=== PATIENT | male | born 1985 | race Caucasian/White ===

== ENCOUNTER → 2018-02-01 | Outpatient (CLI) | payer OTHER, MEDICAID ==
[~2018-02-01] MED LIST: ARIPIPRAZOLE10 MG PO; FLONASE 0.05%50 MCG NASAL; HYDROCODONE-AP1 EAC6 PO; LOPRESSOR50 PO; NEURONTIN 300300 M1 PO; SEROQUEL 50 MG50 MG PO
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
== END ==
LOC: M.PC 01:35
DX: M54.5 Low back pain (principal); G89.29 Other chronic pain

== ENCOUNTER → 2018-03-01 | Outpatient (CLI) | payer OTHER, MEDICAID ==
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
== END ==
LOC: M.PC 02:18
DX: E11.9 Type 2 diabetes mellitus without complications (principal); I10 Essential (primary) hypertension; F40.00 Agoraphobia, unspecified; K21.9 Gastro-esophageal reflux disease without esophagitis; F25.0 Schizoaffective disorder, bipolar type; F17.200 Nicotine dependence, unspecified, uncomplicated

== ENCOUNTER → 2018-03-27 | Outpatient (CLI) | payer OTHER, MEDICAID ==
--- NOTE | 2018-03-29 08:42 | PAINCON ---
[address] [address] PAIN MANAGEMENT CONSULTATION Name: FREDY HENNESSY [facility]: [facility] ClareKelly#: [id number] Admission: 03/27/18 Attend Phys: Viktor Dean MD Discharge: Date of : 89 Report #: [id number] THIS REPORT FOR: //name// CC: Viktor Mi NP DATE OF SERVICE: 03/27/2018 PRIMARY CARE PHYSICIAN: Diandra Mi NP FOLLOWUP COMPLAINT: Here for medications. Things are very helpful. FOLLOWUP HISTORY: The patient is a 33-year-old gentleman who has been seen in the pain clinic because of chronic pain secondary to osteoarthritis. He has been using hydrocodone 5/325 1 p.o. b.i.d. He also finds that the gabapentin 300 mg is helpful. Continues to have some pain and discomfort in his buttocks. He is experiencing some low back pain. As you recall, this pain has been problematic for a number of years. He feels overall that things are going relatively well. He is able to manage his pain level with the use of these medications. Rates his pain as a 5/10. No problem with bowel or bladder dysfunction. No problems with his sensorium, which is clear. He would like to continue with the medications. He feels that these medications continue to help him stay gainfully employed. ALLERGIES: ASPIRIN AND REQUIP CAUSE TACHYCARDIA. CURRENT MEDICATIONS: Aripiprazole 10 mg, gabapentin 300 mg b.i.d., metoprolol ER 50 mg, quetiapine 50 mg, lamotrigine. PAIN CLINIC ASSESSMENT: 1. History of osteoarthritis with compression fracture L1. 2. Height 4 feet 10 inches, weight 141 pounds, BMI is 29.5. 3. Vital signs - blood pressure 164/96, heart rate 108, respiratory rate 16, room air saturation 98%, temperature 98.8. 4. Pain intensity 02/01. 6. Fall risk. The patient has not fallen in the last 3 months. 7. Blood thinner. The patient is not on a blood thinning medication. 8. Hypertension. The patient is being treated for hypertension. 9. Opioid medication greater than 6 weeks. The patient is receiving opioid medications with the pain clinic. 10. Risk assessment tool. 11. Functional assessment tool. 12. Recreational drug use. The patient denies use of recreational drugs use. 13. Tobacco: The patient smokes 1-1/2 pack of cigarettes per day. 14. Alcohol: The patient denies use of alcoholic beverages[place] [address] PAIN MANAGEMENT CONSULTATION Name: FREDY HENNESSY Room: [facility]#: [id number] Admission: 03/27/18 Attend Phys: Viktor Dean MD Discharge: Date of : 89 Report #: [id number] an alcoholic. PHYSICAL EXAMINATION: GENERAL: The patient is a well-developed, somewhat short-statured white male. He is appropriate. Speech is fluent. HEENT: Normocephalic, atraumatic. Extraocular eye muscles intact. Sclerae nonicteric. Hearing is within normal limits. Mucous membranes are moist. NECK: Without adenopathy or JVD. CHEST: Clear to auscultation without rhonchi or wheezes. HEART: Regular rate. S1, S2. ABDOMEN: Nontender. MUSCULOSKELETAL: Without scoliosis, kyphosis or lordosis. The patient has some pain and discomfort in his left buttocks and radiates down the posterior portion of his leg. He feels that the pain as some pins and needles in the posterior feet. Upper extremity muscle strength is judged to be 5/5. Lower extremity strength 5/5. The patient has some decreased flexibility secondary to his pain. IMPRESSION: 1. Agoraphobia. 2. Bipolar. 3. Schizoaffective disorder. 4. Gastroesophageal reflux disease. 5. Diabetes mellitus. 6. Hypertension. 7. Nicotine use. The patient continues one-half to a pack of cigarettes per day. RECOMMENDATIONS: We discussed treatment options with the patient. Risks and benefits of his medications were again reviewed. The patient feels that these medications are helpful. He is aware of the possible problems with addiction using opioid medications. Feels that their use help to quell some of the pain and discomfort, makes his pain manageable. The patient will continue with his medication. He will call us if he has any problems with his medications. A script for renewal of his medications have been provided with hydrocodone 5/325 1 p.o. b.i.d. We would like to thank you for letting us participate in his care. We hope he continues to improve. <ELECTRONICALLY SIGNED> By: Viktor Dean MD 03/29/18 0842 1623 [id number]. Jesus Dean MD /[facility]
== END ==
LOC: M.PC 05:31
DX: M47.816 Spondylosis without myelopathy or radiculopathy, lumbar region (principal); I10 Essential (primary) hypertension; E11.9 Type 2 diabetes mellitus without complications; K21.9 Gastro-esophageal reflux disease without esophagitis; F40.00 Agoraphobia, unspecified; F31.9 Bipolar disorder, unspecified; F25.9 Schizoaffective disorder, unspecified; F17.210 Nicotine dependence, cigarettes, uncomplicated

== ENCOUNTER → 2018-04-24 | Outpatient (CLI) | payer OTHER, MEDICAID ==
--- NOTE | 2018-04-25 14:16 | PAINCON ---
[address] [address] PAIN MANAGEMENT CONSULTATION Name: FREDY HENNESSY Room: [facility]#: [id number] Admission: 04/24/18 Attend Phys: Vitkor Dean MD Discharge: Date of : 89 Report #: [id number] THIS REPORT FOR: //name// CC: Viktor Mi DATE OF SERVICE: 04/24/2018 PRIMARY CARE PHYSICIAN: Diandra Mi NP FOLLOWUP COMPLAINT: "Things are going pretty good. I am enjoying been out of the house." FOLLOWUP HISTORY: The patient is a 33-year-old gentleman who has been followed in the Pain Clinic. As you recall, he has chronic pain secondary to osteoarthritis. He has been working. Finds that his medications continue to enable him to work out of house. He is happy that he is more active. He does not have any problem with his medications. He is taking them as prescribed. No bowel or bladder dysfunction. No problems with his sensorium. It is clear. He feels that his medications are working well and would like to continue their use. ALLERGIES: ASPIRIN AND REQUIP, which have caused tachycardia. CURRENT MEDICATIONS: Aripiprazole 10 mg, gabapentin 300 mg b.i.d., metoprolol ER 50 mg, quetiapine 50 mg, and lamotrigine. PAIN CLINIC ASSESSMENT: 1. History of osteoarthritis with compression fracture at L1. 2. Height 4 feet 10 inches, weight 137 pounds, BMI is 28. 3. Vital Signs: Blood pressure 146/98, heart rate 98, respiratory rate 16, room air saturation 100%, temperature 98.4. 4. Pain score 4/10. 5. Fall risk. The patient has not fallen in the last 3 months. 6. Blood thinner. The patient is not on a blood thinning medication. 7. Hypertension. The patient is being treated for hypertension. 8. Opioid medications greater than 6 weeks. The patient has received medication from the Pain Clinic to help control his pain. 9. Risk assessment tool. 10. Functional assessment tool. 11. Recreational drug use. The patient denies use of recreational drugs. 12. Tobacco: The patient smokes 1-1/2 pack of cigarettes per day. 13. Alcohol: The patient denies use of alcoholic beverages. PHYSICAL EXAMINATION: GENERAL: The patient is a well-developed, well-nourished [place] [address] PAIN MANAGEMENT CONSULTATION Name: FREDY HENNESSY Room: [facility]#: [id number] Admission: 04/24/18 Attend Phys: Viktor Dean MD Discharge: Date of : 89 Report #: [id number] short in stature. His affect is appropriate. He is smiling. Speech is fluent. He appears happy. HEENT: Normocephalic, atraumatic. Extraocular eye muscles intact. Sclerae nonicteric. Hearing is within normal limits. Mucous membranes are moist. NECK: Without adenopathy or JVD. CHEST: Clear to auscultation without rhonchi or wheezing. HEART: Regular rate. S1, S2. ABDOMEN: Nontender. MUSCULOSKELETAL: Without scoliosis, kyphosis or lordosis. The patient has some pain and discomfort, which continues to radiate down into his left buttocks and to the posterior portion of his leg. Feels the pain has some pins and needle quality to it. Muscle strength is judged to be 5/5. Has some decreased flexibility in the low back because of the pain. IMPRESSION: 1. Agoraphobia. 2. Chronic pain in the low back, buttocks area. 3. Bipolar. 4. Schizoaffective disorder. 5. Gastroesophageal reflux disease. 6. Diabetes mellitus. 7. Hypertension. 8. Nicotine use. RECOMMENDATIONS: We discussed treatment options with the patient. We will continue with his current medications. He still feels that the medications are helpful. He is able to stay gainfully employed. He feels that this increased freedom has opened up his options. We will continue with his current medications of hydrocodone 5/325 one p.o. b.i.d. and gabapentin 300 mg daily. We would like to thank you for letting us participate in his care. We hope he continues to improve. <ELECTRONICALLY SIGNED> By: Viktor Dean MD 04/25/18 1416 1311 [id number]. Jesus Dean MD /[facility]
== END ==
LOC: M.PC 05:16
DX: M54.5 Low back pain (principal); G89.29 Other chronic pain; I10 Essential (primary) hypertension; E11.9 Type 2 diabetes mellitus without complications; K21.9 Gastro-esophageal reflux disease without esophagitis; F40.00 Agoraphobia, unspecified; F25.9 Schizoaffective disorder, unspecified; F17.200 Nicotine dependence, unspecified, uncomplicated; Z79.899 Other long term (current) drug therapy

== ENCOUNTER → 2018-05-22 | Outpatient (CLI) | payer OTHER, MEDICAID ==
--- NOTE | 2018-05-23 16:42 | PAINCON ---
[address] [address] PAIN MANAGEMENT CONSULTATION Name: FREDY HENNESSY Room: [facility]#: [id number] Admission: 05/22/18 Attend Phys: Viktor Dean MD Discharge: Date of : 89 Report #: [id number] THIS REPORT FOR: //name// CC: Viktor Mi DATE OF SERVICE: 05/22/2018 PRIMARY CARE PHYSICIAN: Diandra Mi NP FOLLOWUP COMPLAINT: "Things are going well. I am working. It is good to be outside more." FOLLOWUP HISTORY: The patient is a 33-year-old gentleman who has been followed in the Pain Clinic. As you recall, he has a history of agoraphobia. He finds that pain control with use of his opioid medication has been quite helpful. He is able to remain gainfully employed. Feels that working outside of his house is good. Feels his medications are helpful. He is taking them as prescribed. He does not have any problem with bowel or bladder dysfunction. He has had no feelings of despair where he would like to harm himself. ALLERGIES: ASPIRIN and REQUIP, which have caused tachycardia using REQUIP. CURRENT MEDICATIONS: Aripiprazole 10 mg, gabapentin 300 mg b.i.d., metoprolol ER 50 mg, quetiapine 50 mg, lamotrigine. PAIN CLINIC ASSESSMENT: 1. History of osteoarthritis with compression fracture of L1. 2. Height 4 feet 10 inches, weight 136 pounds, BMI is 28.5. 3. Vital Signs: Blood pressure 156/100, heart rate 104, respiratory rate 16, room air saturation 98%, and temperature 98.2. 4. Pain score 4/10. 5. Fall risk. The patient has not fallen in the last 3 months. 6. Blood thinner. The patient is not on a blood thinning medication. 7. Hypertension. The patient is being treated for hypertension. 8. Opioid medication greater than 6 weeks. The patient receives his medication through the Pain Clinic. 9. Risk assessment tool. 10. Functional assessment tool. 11. Recreational drug use. The patient denies use of recreational drugs. 12. Tobacco: The patient smokes one to one and half pack of cigarettes per day. 13. Alcohol: The patient denies use of alcoholic beverages. PHYSICAL EXAMINATION: GENERAL: The patient is a well-developed, well-nourished [place] [address] PAIN MANAGEMENT CONSULTATION Name: FREDY HENNESSY Room: [facility]#: [id number] Admission: 05/22/18 Attend Phys: Viktor Dean MD Discharge: Date of : 89 Report #: [id number] small in stature. His affect is appropriate. He is smiling. Speech is fluent. Appears happy. HEENT: Normocephalic, atraumatic. Extraocular eye muscles intact. Sclerae nonicteric. Hearing is within normal limits. Mucous membranes are moist. NECK: Without adenopathy or JVD. CHEST: Clear to auscultation without rhonchi or rales. HEART: Regular rate. S1, S2. ABDOMEN: Nontender. MUSCULOSKELETAL: Without scoliosis, kyphosis or lordosis. The patient has some pain and discomfort, which continues to radiate down into his left buttocks and to the posterior portion of his leg. Feels that the pain has some components of pins and needle quality to it. Strength is judged to be 5/5. Has decreased flexibility in the low back because of pain. IMPRESSION: 1. Agoraphobia. 2. Chronic pain in the low back area, buttocks area. 3. Bipolar. 4. Schizoaffective disorder. 5. Gastroesophageal reflux disease. 6. Diabetes mellitus. 7. Hypertension. 8. Nicotine use. RECOMMENDATION: The patient feels that he is doing reasonably well. His medications continue to be helpful. He remains gainfully employed outside of his home. Overall, he feels that things are going reasonably well and would like to continue his current medication regimen. A script for hydrocodone 5/325 one p.o. b.i.d. and gabapentin have been rewritten. The patient will call us if he has any problems or concerns. We would like to thank you for letting us participate in his care. We hope he continues to improve. <ELECTRONICALLY SIGNED> By: Viktor Dean MD 05/23/18 1642 [id number] [id number] Dean MD /MADHAVI
== END ==
LOC: M.PC 04:26
DX: M54.5 Low back pain (principal); G89.29 Other chronic pain; F31.9 Bipolar disorder, unspecified; F25.0 Schizoaffective disorder, bipolar type; K21.9 Gastro-esophageal reflux disease without esophagitis; E11.9 Type 2 diabetes mellitus without complications; I10 Essential (primary) hypertension; F17.200 Nicotine dependence, unspecified, uncomplicated

== ENCOUNTER → 2018-06-19 | Outpatient (CLI) | payer OTHER, MEDICAID ==
--- NOTE | 2018-07-09 10:00 | PAINCON ---
[address] [address] PAIN MANAGEMENT CONSULTATION Name: FREDY HENNESSY Room: [facility] KathyOrin#: [id number] Admission: 06/19/18 Attend Phys: Viktor Dean MD Discharge: Date of : 89 Report #: [id number] THIS REPORT FOR: //name// CC: Viktor Mi NP DATE OF SERVICE: 06/19/2018 FOLLOWUP COMPLAINT: Here for medication renewal, things are going well. FOLLOWUP HISTORY: The patient is a 33-year-old gentleman who has been followed in the pain clinic. As you recall, he has a history of agoraphobia. Also, has some low back pain with pain radiating down into the buttocks and into the sacral area. He feels that his medications of hydrocodone continue to be helpful. He is able to remain gainfully employed. Feels that getting out is good. He has not had any thoughts of harming himself. He is working out 3 days a week in the office. He is out of the office 2 days a week. His primary care physician continues to change his blood pressure medications. They continue to monitor. He is using metoprolol. Feels that the hydrocodone is working well. Rates his pain as a 3/10. Continues to use gabapentin and finds that medications helpful as well. ALLERGIES: ASPIRIN, REQUIP, TACHYCARDIA SECONDARY USE OF REQUIP. CURRENT MEDICATIONS: 1. Aripiprazole 10 mg. 2. Gabapentin 300 mg b.i.d. 3. Metoprolol ER 50 mg. 4. Quetiapine 50 mg. 5. Lamotrigine. PAIN CLINIC ASSESSMENT: 1. History of osteoarthritis. The patient is not being treated for osteoarthritis. 2. Height 4 feet 10 inches, weight 135 pounds, BMI is 28.5. 3. Vital signs: Blood pressure 157/98, heart rate 103, respiratory rate 16, room air saturation 98%, temperature 98.7. 4. Pain intensity 12/02. 5. Fall risk. The patient has not fallen in the last 3 months. 6. Blood thinner. The patient is not on a blood thinning medication. 7. Hypertension. The patient has been treated for hypertension. 8. Opioid therapy greater than 6 weeks. The [facility] 9. Risk assessment tool. 10. Functional [place] [address] PAIN MANAGEMENT CONSULTATION Name: FREDY HENNESSY Room: [facility]#: [id number] Admission: 06/19/18 Attend Phys: Viktor Dean MD Discharge: Date of : 89 Report #: [id number] 11. Recreational drug use. The patient denies use of recreational drugs. 12. Tobacco: The patient smokes one half to one pack of cigarettes per day, has smoked for the last 15 years. 13. Alcohol: The patient denies use of alcohol. The patient denies use of recreational drugs. PHYSICAL EXAMINATION: GENERAL: The patient is a well-developed, well-nourished white male. He appears his stated age. He is short in stature. His affect is appropriate. Speech is fluent. Appears happy. HEENT: Normocephalic, atraumatic. Extraocular eye muscles intact. Sclerae nonicteric. Hearing is within normal limits. Mucous membranes are moist. NECK: Without adenopathy or JVD. CHEST: Clear to auscultation without rhonchi or rales. HEART: Regular rate. S1, S2. ABDOMEN: Nontender. MUSCULOSKELETAL: Without scoliosis, kyphosis or lordosis. The patient has some pain and discomfort that radiates down the left of his buttocks. Notes some in the posterior portion of his leg as well. The patient notes some quality of pins and needle sensation in his leg. Strength is judged to be 5/5 for the major muscle groups. The patient walks with a slight antalgic gait. ASSESSMENT: 1. Agoraphobia. 2. Chronic pain in low back area involving his buttocks area with some in the area of sacrum. 3. Bipolar history. 4. Schizoaffective disorder. 5. Gastroesophageal reflux disease. 6. Diabetes mellitus. 7. Hypertension. 8. Nicotine use. RECOMMENDATIONS: We discussed treatment options with the patient. Risks and benefits of opioid medication were again discussed with the patient. They can be helpful. Problems with opioid medication were discussed. They could cause dependency as well as less effective as tolerance develops. Overall, the patient feels that the medication is helpful. Enables him to continue to work. He would like to continue with the medication. He is not having any problems. He continued followup with his psychologist. <ELECTRONICALLY SIGNED> By: Viktor Dean MD 07/09/18 1000 [id number]. Jesus Dean MD /nt
== END ==
LOC: M.PC 04:55
DX: F40.00 Agoraphobia, unspecified (principal); I10 Essential (primary) hypertension; E11.9 Type 2 diabetes mellitus without complications; K21.9 Gastro-esophageal reflux disease without esophagitis; F25.9 Schizoaffective disorder, unspecified; M54.5 Low back pain; Z72.0 Tobacco use; Z86.59 Personal history of other mental and behavioral disorders; Z79.899 Other long term (current) drug therapy

== ENCOUNTER → 2018-07-17 | Outpatient (CLI) | payer OTHER, MEDICAID ==
--- NOTE | 2018-08-08 16:08 | PAINCON ---
[address] [address] PAIN MANAGEMENT CONSULTATION Name: FREDY HENNESSY [id number] Admission: 07/17/18 Attend Phys: Viktor Dean MD Discharge: Date of : 89 Report #: [id number] THIS REPORT FOR: //name// CC: Viktor Mi DATE OF SERVICE: 07/17/2018 CHIEF COMPLAINT: "Things are going reasonably well." FOLLOWUP HISTORY: The patient is a 33-year-old gentleman who has been followed in the pain clinic because of chronic pain. Suffers from agoraphobia. He continues to have some pain and discomfort, which radiates down into his buttocks and into the sacral area. Overall, he thinks things are going reasonably well with his hydrocodone medication. This enables him to stay gainfully employed. He has no thoughts of harming himself. He did have some problems with getting his blood pressure medications. The pharmacy told him that he had already received it. He had not. This caused some consternation. Overall, they have called him again and told him that things are ready. He feels that his blood pressure is a little bit elevated because of this. He has been out of medication for 6 days. He continues to find being out in more social very liberating. ALLERGIES: ASPIRIN, REQUIP - TACHYCARDIA. CURRENT MEDICATIONS: Aripiprazole 10 mg, gabapentin 300 mg b.i.d., metoprolol 50 mg, quetiapine 50 mg, and lamotrigine. PAIN CLINIC ASSESSMENT: 1. History of osteoarthritis. The patient has not been treated for osteoarthritis or rheumatoid arthritis. 2. Height 4 feet 10 inches. 3. Weight 132 pounds, BMI is 26.9. 4. VITAL SIGNS: Blood pressure 158/103, heart rate 105, respiratory rate 16, room air saturation 99%, and temperature 98.4. 5. Pain intensity 10. 6. Fall history: The patient has not fallen in the last 3 months. 7. Blood thinner. The patient is not on a blood thinning medication. 8. Hypertension. The patient is being treated for hypertension. 9. Opioids greater than 6 weeks. The patient [facility]. 10. Risk assessment tool. 11. Functional assessment tool. 12. Recreational drug use: The patient denies. 13. Tobacco: The patient smokes 1/2 pack of cigarettes per day and has smoked for the last [place] [address] PAIN MANAGEMENT CONSULTATION Name: FREDY HENNESSY Room: [facility]#: [id number] Admission: 07/17/18 Attend Phys: Viktor Dean MD Discharge: Date of : 89 Report #: [id number] 13. Alcohol: The patient denies use of alcoholic beverages. PHYSICAL EXAMINATION: GENERAL: The patient is a well-developed, well-nourished white male. He is short in stature. Affect is appropriate. Speech is fluent. HEENT: Normocephalic, atraumatic. Extraocular eye muscles intact. Sclerae nonicteric. Hearing is within normal limits. Mucous membranes are moist. NECK: Without adenopathy or JVD. CHEST: Clear to auscultation without rhonchi or rales. HEART: Regular rate. S1, S2. ABDOMEN: Nontender. Bowel sounds present. MUSCULOSKELETAL: Without scoliosis, kyphosis or lordosis. The patient has pain and discomfort radiates down into the left side of his buttocks. He has some posterior pain in his leg as well. The patient has some perception of pins and needles in the leg. Strength in lower extremity judged to be 5/5. The patient is not walking with much of an antalgic gait today. ASSESSMENT: 1. Agoraphobia. 2. Pain in the low back area involving his buttocks with some pain into the sacrum. 3. Bipolar history. 4. Schizoaffective disorder. 5. Gastroesophageal reflux disease. 6. Diabetes. 7. Hypertension. 8. Nicotine use. Discussed the benefits of cessation of tobacco use. RECOMMENDATIONS: We discussed treatment options with the patient. At this juncture, we will continue with his medication. He feels that this medication is helpful. Not having any problem with the medications. Also discussed the importance of taking the medication as prescribed. Discussed development of tolerance. The patient is aware that opioid medications in conjunction with other medications can be problematic and cause . He has seen reports of these items in the news. Overall, he feels his medications helpful and would like to continue with the medication, not having any problems. We would like to thank you for letting us participate in his care. We hope he continues to improve. <ELECTRONICALLY SIGNED> By: Viktor Dean MD 08/08/18 1608 [id number]. Jesus Dean MD /nt
== END ==
LOC: M.PC 04:57
DX: F40.00 Agoraphobia, unspecified (principal); M54.5 Low back pain; F31.9 Bipolar disorder, unspecified; F25.9 Schizoaffective disorder, unspecified; E11.9 Type 2 diabetes mellitus without complications; K21.9 Gastro-esophageal reflux disease without esophagitis; I10 Essential (primary) hypertension; F17.210 Nicotine dependence, cigarettes, uncomplicated

== ENCOUNTER → 2018-08-14 | Outpatient (CLI) | payer OTHER, MEDICAID ==
--- NOTE | ~2018-08-14 | PAINCON ---
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 As you recall, he suffers from chronic pain. He has a history of agoraphobia. He continues to have pain that radiates down into his buttocks and into the sacral area. Overall, he thinks that things are going reasonably well. He finds that hydrocodone about 1 tablet p.o. b.i.d. is helpful. He has remained gainfully employed. He is feeling good about himself. No thoughts of harming himself. He does have pain in the low back and pain that radiates down into his buttocks. He is contemplating cooking a turkey this year, this is his first attempt. Overall, he is feeling pretty good about it. He would like to have his medications renewed. He has had no problems with his medications. He rates his pain as a 4/10. ALLERGIES: ASPIRIN AND REQUIP -- TACHYCARDIA. CURRENT MEDICATIONS: Aripiprazole 10 mg, gabapentin 300 mg b.i.d., metoprolol 50 mg, quetiapine 50 mg, and lamotrigine. CLINIC ASSESSMENT AND PQRS: 1. History of osteoarthritis: The patient is not being treated for osteoarthritis or rheumatoid arthritis. 2. Height 4 feet 10 inches, weight 134, BMI is 28. 3. Vital signs: Blood pressure 169/95, heart rate 97, respiratory rate 18, room air saturation 99%, temperature 98.2. 4. Pain intensity: 4/10. 5. Fall history: The patient has not fallen in the last 3 months. 6. Blood thinner: The patient is not on a blood thinning medication. 7. Hypertension: The patient is being treated for hypertension. 8. Opioids greater than 6 weeks: The [facility]. 9. Risk assessment tool. 10. Functional assessment tool. 11. Recreational drug use: The patient denies use of recreational drugs. 12. Tobacco: The patient smokes one-half pack of cigarettes per day and has smoked for the last 15 years. He states that [place] [address] PAIN MANAGEMENT CONSULTATION Name: ALONDRAANABELFREDY FRANKLIN Rich Room: [facility]#: [id number] Admission: 08/14/18 Attend Phys: Viktor Dean MD Discharge: Date of : 89 Report #: [id number] amount. We did discuss the benefits of smoking cessation with the patient. 13. Alcohol: The patient denies use of alcoholic beverages. PHYSICAL EXAMINATION: GENERAL: The patient is a well-developed, well-nourished, white male. He appears his stated age. He is alert and oriented x 3. His affect is appropriate. Speech is fluent. HEENT: Normocephalic, atraumatic. Extraocular eye muscles intact. Sclerae nonicteric. Mucous membranes are moist. NECK: Without adenopathy or JVD. CHEST: Clear to auscultation without rhonchi or rales. HEART: Regular rate. S1 and S2. ABDOMEN: Nontender. Bowel sounds present. MUSCULOSKELETAL: Without scoliosis, kyphosis or lordosis. The patient has some pain and discomfort that radiates down into the left side of his buttocks. He has some pain in the posterior portion of his leg as well. He has some perception of pins and needles in his leg. Muscle strength is judged to be 5/5. The patient walks normally without significant antalgic gait. ASSESSMENT: 1. Agoraphobia. 2. Pain in the low back area involving the buttocks and some pain down into his sacrum. 3. Bipolar history. 4. Schizoaffective disorder. 5. Gastroesophageal reflux disease. 6. Diabetes. 7. Hypertension. 8. Nicotine use. Discussed benefits of smoking cessation. RECOMMENDATIONS: We discussed treatment options with the patient. We will continue with his current medications. 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 He seems very motivated. He continues to work well. He appears to be taking his medications as prescribed. We will renew his medication of hydrocodone 5 mg 1 p.o. b.i.d. We would like to thank you for letting us participate in his care. We hope he continues to improve. By: [id number]. Jesus Dean MD /cherie
== END ==
LOC: M.PC 04:52
DX: F40.00 Agoraphobia, unspecified (principal); M54.5 Low back pain; F25.9 Schizoaffective disorder, unspecified; K21.9 Gastro-esophageal reflux disease without esophagitis; E11.9 Type 2 diabetes mellitus without complications; I10 Essential (primary) hypertension; F17.200 Nicotine dependence, unspecified, uncomplicated; Z86.59 Personal history of other mental and behavioral disorders

== ENCOUNTER → 2018-09-11 | Outpatient (CLI) | payer OTHER, MEDICAID ==
--- NOTE | ~2018-09-11 | PAINCON ---
[address] [address] PAIN MANAGEMENT CONSULTATION Name: FREDY HENNESSY Room: [facility] John#: [id number] Admission: 09/11/18 Attend Phys: Viktor Dean MD Discharge: Date of : 89 Report #: [id number] THIS REPORT FOR: //name// CC: Viktor Pompatings DATE OF SERVICE: 09/11/2018 FOLLOWUP COMPLAINT: "Things are going well, I am here for getting my medications renewed." FOLLOWUP HISTORY: The patient is a 33-year-old gentleman who has been followed in the pain clinic. As you recall, he suffers from chronic pain. He has a history of agoraphobia. Continues to have pain, which radiates down into his buttocks and into the sacral area. Overall, things are going reasonably well. He finds hydrocodone medication helps to quell his pain and discomfort. He continues to be gainfully employed. Feels good about being out and about. Overall, things are going relatively well with him. It is Leona season and he is happy with the way things are going. He would like to have his medications renewed. ALLERGIES: ASPIRIN, REQUIP - TACHYCARDIA. CURRENT MEDICATIONS: Aripiprazole 10 mg, gabapentin 300 mg b.i.d., metoprolol 50 mg, quetiapine 50 mg, and lamotrigine. PAIN CLINIC ASSESSMENT AND PQRS: 1. History of osteoarthritis. The patient is not being treated for osteoarthritis or rheumatoid arthritis. 2. Height 4 feet 5 inches, weight 133 pounds, BMI is 29.2. 3. Vital signs: Blood pressure 151/94, heart rate 105, respiratory rate 16, room air saturation 99%. Temperature 98.3. 4. Pain intensity, 5/10. 5. Fall history: The patient has not fallen in the last 3 months. 6. Blood thinner. The patient is not on a blood thinning medication. 7. Hypertension. The patient is not being treated for hypertension. 8. Opioids greater than 6 weeks. The patient [facility] medication [facility]. 9. Risk assessment tool, moderate for use of opioids. 10. Functional assessment tool. 11. Recreational drug use. The patient denies use of recreational drugs. 12. Tobacco: The patient smokes ____ pack of cigarettes per day, has smoked for the last 15 years. Again, we discussed the benefits of smoking cessation. 13. Alcohol: The patient denies use of alcoholic beverages. PHYSICAL EXAMINATION: [address] [place] [address] PAIN MANAGEMENT CONSULTATION Name: FREDY HENNESSY Room: [facility]#: [id number] Admission: 09/11/18 Attend Phys: Viktor Dean MD Discharge: Date of : 89 Report #: [id number] GENERAL: The patient is a well-developed, well-nourished white male. Short in stature. Speech is fluent. HEENT: Normocephalic, atraumatic. Extraocular eye muscles intact. Sclerae nonicteric. Mucous membranes are moist. CHEST: Clear to auscultation without rhonchi or rales. HEART: Regular rate. S1, S2. ABDOMEN: Nontender. Bowel sounds present. MUSCULOSKELETAL: Without scoliosis, kyphosis, or lordosis. The patient has some pain and discomfort that radiates down the left side of the leg and into the buttocks. He has some pain in the posterior portion of his leg. He has some ____ pins and needles on occasion. Muscle strength judged to be 5/5. The patient walks with a normal gait. ASSESSMENT: 1. History of agoraphobia - improved with him getting out and working at this juncture. 2. Pain in the lower area of his back and down to the buttocks and into the sacrum. 3. History of bipolar history. 4. Schizoaffective disorder. 5. Gastroesophageal reflux disease. 6. Diabetes. 7. Hypertension. 8. Nicotine use. RECOMMENDATIONS: We discussed treatment options with the patient. Risks and benefits of smoking cessation were discussed. The patient feels his medications are helpful. He would like to have the medications renewed. A script for gabapentin 300 mg 1 p.o. b.i.d. and a renewal of [place] 5/325 one p.o. b.i.d. have been issued. The patient will call us if he has any concerns. We would like to thank you for letting us participate in his care. We hope he continues to improve. By: [id number]. Jesus Dean MD /cherie
== END ==
LOC: M.PC 04:42
DX: M54.5 Low back pain (principal); M53.3 Sacrococcygeal disorders, not elsewhere classified; I10 Essential (primary) hypertension; E11.9 Type 2 diabetes mellitus without complications; K21.9 Gastro-esophageal reflux disease without esophagitis; F25.0 Schizoaffective disorder, bipolar type; F17.200 Nicotine dependence, unspecified, uncomplicated; Z79.899 Other long term (current) drug therapy

== ENCOUNTER → 2018-10-09 | Outpatient (CLI) | payer OTHER, MEDICAID ==
[~2018-10-09] MED LIST changes: +CHANTIX1 MG PO
== END ==
LOC: M.PC 09:40
DX: F40.01 Agoraphobia with panic disorder (principal); M54.5 Low back pain; K21.9 Gastro-esophageal reflux disease without esophagitis; I10 Essential (primary) hypertension; F17.200 Nicotine dependence, unspecified, uncomplicated; E11.9 Type 2 diabetes mellitus without complications; F25.9 Schizoaffective disorder, unspecified; Z86.59 Personal history of other mental and behavioral disorders

== ENCOUNTER → 2018-11-13 | Outpatient (CLI) | payer OTHER, MEDICAID ==
[~2018-11-13] MED LIST changes: +LOPRESSOR100 M1 PO; -LOPRESSOR50 PO
--- NOTE | 2018-11-21 09:41 | PAINCON ---
[address] [address] PAIN MANAGEMENT CONSULTATION Name: FREDY HENNESSY Room: [facility]#: [id number] Admission: 11/13/18 Attend Phys: Viktor Dean MD Discharge: Date of : 89 Report #: [id number] THIS REPORT FOR: //name// CC: Viktor Mi NP DATE OF SERVICE: 11/13/2018 PRIMARY CARE PHYSICIAN: Diandra Mi NP FOLLOWUP COMPLAINT: Here for medication renewal, things are going well. FOLLOW HISTORY: The patient is a 33-year-old gentleman who has been followed in the pain clinic because of chronic pain. He has some pain and discomfort in his low back and his buttocks. This has been problematic for a number of years. He finds that his medications are helpful. He continues to work outside the home. As you may recall, he suffers from agoraphobia. States that he continues to work and finds his job for feeling somewhat. Notes that the cold weather has exacerbated his discomfort. He was out of his medication for 5 days due to a billing issue. He feels that his pain continues to be more tolerable with use of [place]. He had no problems with withdrawal, rates his pain as a 7/10. ALLERGIES: ASPIRIN, REQUIP CAUSE TACHYCARDIA. CURRENT MEDICATIONS: Aripiprazole 10 mg, gabapentin 300 mg b.i.d., metoprolol 50 mg, quetiapine 50 mg, lamotrigine. PAIN CLINIC ASSESSMENT AND PQRS: 1. The patient has history of osteoarthritis. The patient is not being treated for osteoarthritis or rheumatoid arthritis. 2. Height 5 feet 4 inches, weight 139 pounds, BMI is 29. 3. Vital Signs: Blood pressure 145/99, heart rate 81, respiratory rate 16, room air saturation 98%, temperature 98.4. 4. Pain intensity 7/10. 5. Fall history: The patient has not fallen in the last 3 months. 6. Blood thinner. The patient is not on a blood thinning medication. 7. Hypertension. The patient has not been treated for hypertension. 8. Opioids greater than 6 weeks. The [facility]. 9. Risk assessment tool, moderate risk for opioid use. 10. Functional assessment tool. 11. Recreational drug use. The patient denies use of recreational drugs. 12. Tobacco: The patient does smoke cigarettes, about 4 cigarettes per day. Continues to try to decrease and stop smoking. Discussed this benefit [place] [address] PAIN MANAGEMENT CONSULTATION Name: FREDY HENNESSY Room: [facility]#: [id number] Admission: 11/13/18 Attend Phys: Viktor Dean MD Discharge: Date of : 89 Report #: [id number] 13. Alcohol: The patient denies use of alcoholic beverages. PHYSICAL EXAMINATION: GENERAL: The patient is a well-developed, well-nourished, white male. Somewhat short stature. Appears his stated age. He is alert and oriented x 3. His affect is appropriate. Speech is fluent. HEENT: Normocephalic. Extraocular eye muscles intact. Sclerae nonicteric. Appears happy. CHEST: Clear to auscultation without rhonchi or rales. HEART: Regular rate. S1, S2. ABDOMEN: Nontender. Bowel sounds present. MUSCULOSKELETAL: Without significant scoliosis, kyphosis or lordosis. The patient does have some pain and discomfort that radiates down into his left leg and into his buttocks. He has pain in the posterior portion of his leg and notes some occasional pins and needle sensation in the lower portion of his buttocks. Muscle strength is judged to be 5/5 for the major muscle groups in the lower extremity as well as in the upper extremity. The patient walks with a normal gait. ASSESSMENT: 1. Agoraphobia - improved with continued work out of his home. He feels that his medications continue to be helpful. 2. Pain in the lower portion of the back with radiation down into his buttocks and into the sacrum. 3. History of bipolar affective. 4. Schizoaffective disorder. 5. Gastroesophageal reflux. 6. Diabetes. 7. Hypertension. 8. Nicotine RECOMMENDATIONS: We discussed treatment options with the patient. At this juncture, we will renew his medications. There were some problems with the billing issue. I think he has gotten this squared away. Hopefully, things continue to go well. He will call us if he has any concerns. A script for his medications of hydrocodone 5 mg 1 p.o. b.i.d., total of 60 tablets have been dispensed. We would like to thank you for letting us participate in his care. We hope he continues to improve. <ELECTRONICALLY SIGNED> By: Viktor Dean MD 11/21/18 [id number] [id number]. Jesus Dean MD /MADHAVI
== END ==
LOC: M.PC 05:49
DX: M54.5 Low back pain (principal); G89.29 Other chronic pain; F25.9 Schizoaffective disorder, unspecified; K21.9 Gastro-esophageal reflux disease without esophagitis; E11.9 Type 2 diabetes mellitus without complications; I10 Essential (primary) hypertension; F17.200 Nicotine dependence, unspecified, uncomplicated; F40.00 Agoraphobia, unspecified; Z88.8 Allergy status to other drugs, medicaments and biological substances; Z79.899 Other long term (current) drug therapy

== ENCOUNTER → 2018-12-11 | Outpatient (CLI) | payer OTHER, MEDICAID ==
--- NOTE | ~2018-12-11 | PAINCON ---
[address] [address] PAIN MANAGEMENT CONSULTATION Name: FREDY HENNESSY Room: [facility] John#: [id number] Admission: 12/11/18 Attend Phys: Viktor Dean MD Discharge: Date of : 89 Report #: [id number] THIS REPORT FOR: //name// CC: Viktor Pompatings DATE OF SERVICE: 12/11/2018 CHIEF COMPLAINT: Chronic low back pain in the T11-T12 area. HISTORY: The patient is a 33-year-old gentleman who has been followed in the pain clinic because of chronic pain involving his back. He states that he has pain in the T12-T11 area. Also, has some discomfort in the lumbar L1 area. He states that this pain has radiates down into his buttocks. He feels that his medications are helpful. He has returned today with the renewal of his medications. He is hopeful that the weather will continue to be mild. Spring has sprung. He has a history as you recall of agoraphobia. He feels that his job continues to be beneficial. He has continued to use the [place] medication to help with his pain and discomfort. He feels that the pain medications make things tolerable. He feels that some days a higher dose of 3 tablets would be beneficial, but he is able to use it and feels he is about 80% improved. ALLERGIES: ASPIRIN, REQUIP CAUSE TACHYCARDIA. CURRENT MEDICATIONS: Aripiprazole 10 mg, gabapentin 300 mg b.i.d., metoprolol 50 mg, quetiapine 50 mg, and lamotrigine. PAIN CLINIC ASSESSMENT/PQRS: 1. History of osteoarthritis. The patient is not being treated for osteoarthritis or rheumatoid arthritis. 2. Height 5 feet 4 inches, weight 149 pounds, BMI is 30. 3. Vital signs: Blood pressure 152/99, heart rate 94, respiratory rate 16, room air saturation 98%, temperature 98.3. 4. Pain intensity 03/04. 5. Fall history: The patient has not fallen in the last 3 months. 6. Blood thinner. The patient is not on a blood thinning medication. 7. Opioids greater than 6 weeks. The [facility]. 8. Risk assessment, moderate use for opioids. 9. Functional assessment tool. 10. Recreational drug use. The patient denies use of recreational drugs. 11. Tobacco: The patient continue smokes. He smokes 4 cigarettes per day. Again, discussed the benefits of smoking cessation. 12. Alcohol. The patient denies use of alcoholic beverages. PHYSICAL EXAMINATION: [place] [address] PAIN MANAGEMENT CONSULTATION Name: FREDY HENNESSY Room: [facility]#: [id number] Admission: 12/11/18 Attend Phys: Viktor Dean MD Discharge: Date of : 89 Report #: [id number] GENERAL: The patient is a well-developed, well-nourished white male. He appears his stated age. He is alert and oriented x 3. His affect is appropriate. Speech is fluent, start short in stature. HEENT: Normocephalic, atraumatic. Extraocular eye muscles intact. Sclerae nonicteric. Mucous membranes are moist. CHEST: Clear to auscultation without rhonchi or rales. HEART: Regular rate. S1, S2. ABDOMEN: Nontender. Bowel sounds present. MUSCULOSKELETAL: Without significant scoliosis, kyphosis or lordosis. The patient has pain in the lower portion of his back in about the T12-T11 area. Also, complains of some pain in the L1 area and some pain that radiates down into his buttocks. Gait is normal. IMPRESSION: 1. Agoraphobia, stable at this juncture. He feels his medications are helpful. 2. Pain in the lower portion of his back, treated with his current medical regimen. 3. History of bipolar. 4. History of schizoaffective disorder. 5. Gastroesophageal reflux. 6. Diabetes. 7. Hypertension. 8. Nicotine use. RECOMMENDATIONS: We discussed treatment options with the patient. We will continue with his current medication of [place] 5 mg 1 p.o. b.i.d. The patient will continue to work on decreasing tobacco use. He will call us if he has any concerns. A script for his medications of hydrocodone 5 mg 1 p.o. b.i.d. has been written. We would like to thank you for letting us participate in his care. We hope he continues to improve. By: [id number]. Jesus Dean MD /cherie
== END ==
LOC: M.PC 04:58
DX: M54.6 Pain in thoracic spine (principal); G89.29 Other chronic pain; F40.00 Agoraphobia, unspecified; F25.0 Schizoaffective disorder, bipolar type; E11.9 Type 2 diabetes mellitus without complications; M19.90 Unspecified osteoarthritis, unspecified site; I10 Essential (primary) hypertension; K21.9 Gastro-esophageal reflux disease without esophagitis; F17.200 Nicotine dependence, unspecified, uncomplicated; Z88.8 Allergy status to other drugs, medicaments and biological substances; Z79.899 Other long term (current) drug therapy; Z79.891 Long term (current) use of opiate analgesic

== ENCOUNTER → 2019-02-05 | Outpatient (CLI) | payer OTHER, MEDICAID | LOC: M.PC 07:13 | DX: G89.29 Other chronic pain (principal); M54.5 Low back pain; K21.9 Gastro-esophageal reflux disease without esophagitis; I10 Essential (primary) hypertension; E11.9 Type 2 diabetes mellitus without complications; F17.210 Nicotine dependence, cigarettes, uncomplicated; Z88.8 Allergy status to other drugs, medicaments and biological substances; Z79.891 Long term (current) use of opiate analgesic ==

== ENCOUNTER → 2019-02-28 | Outpatient (CLI) | payer OTHER, MEDICAID ==
[~2019-02-28] MED LIST changes: +HYDROCODON-ACE1 EAC7 PO
--- NOTE | ~2019-02-28 | PAINCON ---
[address] [address] PAIN MANAGEMENT CONSULTATION Name: FREDY HENNESSY Room: [facility] KathyOrin#: [id number] Admission: 02/28/19 Attend Phys: Viktor Dean MD Discharge: Date of : 89 Report #: [id number] THIS REPORT FOR: //name// CC: Viktor Mi NP DATE OF SERVICE: 02/28/2019 FOLLOWUP COMPLAINT: Here for medicine renewal. HISTORY: The patient is a 33-year-old gentleman. As you recall, he has had pain in his low back area for quite a number of years. He has pain in T12/T11 area. Also, has had some pain down the lower portion of his body back. He has found hydrocodone helpful. He was pretty much homebound because of his agoraphobia. States that he is out more. Things are going reasonably well. He rates his pain as a 6/10 today. He continues to use his medications as prescribed. He takes it as directed. Notes some pain that radiates down into his left thigh. Also, has note some tightness around his big toe at times. He continues to be physically active. He feels that his pain is about 90% improved with his current medical regimen. Notes that walking, sitting, standing are problematic without his medications. Lifting and bending are problematic as well. ALLERGIES: ASPIRIN, REQUIP CAUSED TACHYCARDIA. CURRENT MEDICATIONS: Aripiprazole 10 mg, gabapentin 300 mg b.i.d., metoprolol 50 mg, quetiapine 50 mg, and lamotrigine. PAIN CLINIC ASSESSMENT/PQRS: 1. The patient is not being treated for osteoarthritis or rheumatoid arthritis. 2. Height 4 feet, 10 inches, weight 147 pounds, BMI is 31. 3. Vital Signs: Blood pressure 149/103, heart rate 91, respiratory rate 16, room air saturation is 99%, temperature is 98.1. 4. Pain intensity, 10. 5. Fall history: The patient has not fallen in the last 3 months. 6. Blood thinner. The patient is not on a blood thinning medication. 7. Risk assessment tool, moderate for opioid use. 8. Functional assessment tool. 9. Recreational drug use. The patient denies. 10. Tobacco: The patient continues to smoke. 11. Alcohol: The patient denies use of alcoholic beverages. PHYSICAL EXAMINATION: GENERAL: The patient is a well-developed, well-nourished white male. Small in stature. He is alert and [place] [address] [address] PAIN MANAGEMENT CONSULTATION Name: DANKYVESFREDY Rich Room: [facility]#: [id number] Admission: 02/28/19 Attend Phys: Viktor Dean MD Discharge: Date of : 89 Report #: [id number] HEENT: Normocephalic, atraumatic. Extraocular eye muscles intact. Sclerae nonicteric. Mucous membranes are moist. CHEST: Clear to auscultation without rhonchi or rales. HEART: Regular rate. S1, S2. ABDOMEN: Nontender. Bowel sounds present. MUSCULOSKELETAL: Without significant scoliosis, kyphosis, or lordosis. The patient has pain and discomfort in lower portion of his back in the T12/T11 area. Also, has pain in the lumbar area in the L1 distribution. Has pain that radiates down to his buttocks. Gait is appropriate and normal. IMPRESSION: 1. Agoraphobia - stable at this juncture. Feels medications are helpful and he remains gainfully employed. 2. History of bipolar condition. 3. History of schizoaffective disorder. 4. Gastroesophageal reflux. 5. Diabetes. 6. Hypertension. 7. Nicotine use. 8. Some depression and that his brother has been given 40 years fpc time. RECOMMENDATIONS: We discussed treatment options with the patient. At this juncture, we will continue with his medications. He feels the medication is working reasonably well. He is taking them as prescribed. He is aware that opioid medications can be problematic in some people. They can develop dependency. The patient can also developed, less effective pain relief secondary to development of tolerance. The patient feels his medications are working reasonably well. He is taking them as prescribed. He would like to continue with their use. A script for his medications of hydrocodone 5 mg 1 p.o. b.i.d. has been written. He will follow up in the future. We would like to thank you for letting us participate in his care. We hope he continues to improve. By: [id number]. Jesus Dean MD /cherie
== END ==
LOC: M.PC 05:35
DX: F40.00 Agoraphobia, unspecified (principal); E11.9 Type 2 diabetes mellitus without complications; I10 Essential (primary) hypertension; K21.9 Gastro-esophageal reflux disease without esophagitis; F17.200 Nicotine dependence, unspecified, uncomplicated; F32.9 Major depressive disorder, single episode, unspecified; Z76.0 Encounter for issue of repeat prescription; Z88.6 Allergy status to analgesic agent; Z79.899 Other long term (current) drug therapy

== ENCOUNTER → 2019-04-02 | Outpatient (CLI) | payer OTHER, MEDICAID ==
[~2019-04-02] MED LIST changes: +LISINOPRIL10 MG PO
--- NOTE | ~2019-04-02 | PAINCON ---
[address] [address] PAIN MANAGEMENT CONSULTATION Name: FREDY HENNESSY Room: [facility] KathyOrin#: [id number] Admission: 04/02/19 Attend Phys: Viktor Dean MD Discharge: Date of : 89 Report #: [id number] THIS REPORT FOR: //name// CC: Viktor Mi DATE OF SERVICE: 04/02/2019 CHIEF COMPLAINT: Here for medication renewal. HISTORY: The patient is a 34-year-old gentleman who has been followed in the pain clinic because of chronic pain. He continues to have pain, which has been problematic for a number of years. It involves his low back area, radiates down into the middle of his back as well as down into the left butt cheek. It involves the left side, which is most problematic. He feels that his medications are quite beneficial. He feels that he is about 90% improved with their use. He has been started on other blood pressure medications. He is starting to use not lisinopril. He continues to take both of these medications. He continues to work. Feels overall that things are going better. He works in an area where he was inside the building. 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 He works outside for 2 months and the coworker works inside for 2 months. He likes this. Gives him more freedom. Again, given that he suffers from agoraphobia. He feels like he is getting out making progress. ALLERGIES: ASPIRIN, REQUIP CAUSE TACHYCARDIA. CURRENT MEDICATIONS: Aripiprazole 10 mg, gabapentin 300 mg b.i.d., metoprolol 50 mg, quetiapine 50 mg, lamotrigine and lisinopril. PAIN CLINIC ASSESSMENT AND PQRS: 1. The patient is not being treated for osteoarthritis or rheumatoid arthritis. 2. Height 4 feet 10 inches, weight 145 pounds, BMI is 30. 3. VITAL SIGNS: Blood pressure 157/103, heart rate 102, respiratory rate 16, room air saturation 98%, temperature is 98.3. 4. Pain intensity 5/10. 5. Fall history: The patient has not fallen in the last 3 months. 6. Blood thinner. The patient is not on a blood thinning medication. 7. Risk assessment tool, moderate for opioid use. 8. Functional assessment tool. 9. Recreational drug use. The patient denies use of recreational drugs. 10. Tobacco: The patient continues to smoke cigarettes. States he continues to try to stop smoking. 11. Alcohol: The patient denies use of alcoholic beverages. PHYSICAL EXAMINATION: GENERAL: The patient is a well-developed, well-nourished, [place] [address] PAIN MANAGEMENT CONSULTATION Name: FREDY HENNESSY Rich Room: [facility]#: [id number] Admission: 04/02/19 Attend Phys: Viktor Dean MD Discharge: Date of : 89 Report #: [id number] stature gentleman. He is alert and oriented x 3. His affect is appropriate. Speech is fluent. HEENT: Normocephalic, atraumatic. Extraocular eye muscles intact. Sclerae nonicteric. Mucous membranes moist. NECK: Without adenopathy or JVD. HEART: Regular rate. LUNGS: Clear to auscultation. EXTREMITIES: Upper extremity muscle strength is judged to be 5/5 for the major muscle groups in the upper extremity. Lower extremity muscle strength judged to be 5/5 for the major muscle groups. The patient has pain in the mid portion of his back. He has some pain that radiates down the left lateral buttocks area and down to the posterior portion of his leg. IMPRESSION: 1. Agoraphobia, stable at this juncture. The patient feels that switching from working inside to 2 months outside will be beneficial. 2. History of bipolar condition. 3. History of schizoaffective disorder. 4. Gastroesophageal reflux. 5. Diabetes. 6. Hypertension. 7. Nicotine use. 8. Some depression after his brother was given a 4-year penitentiary sentence. RECOMMENDATIONS: We discussed treatment options with the patient. We will continue with his medications. He feels the medications are helpful. He has taken the medication as prescribed. He is having no complications. Keeps his medications in a guarded area. We explained the possible complications of opioid use, which could be less effectiveness secondary to development of tolerance. The patient also has knowledge that some patients can develop a dependency as a result of the use of opioids. He feels that overall things are going well. He feels he is on a low dose of opioid medication. We will continue to use this complicated medication regimen using opioids to help control his pain. By: [id number]. Jesus Dean MD /MADHAVI
== END ==
LOC: M.PC 05:17
DX: M54.5 Low back pain (principal); G89.29 Other chronic pain; K21.9 Gastro-esophageal reflux disease without esophagitis; E11.9 Type 2 diabetes mellitus without complications; I10 Essential (primary) hypertension; F17.210 Nicotine dependence, cigarettes, uncomplicated; F32.9 Major depressive disorder, single episode, unspecified; F40.00 Agoraphobia, unspecified; Z86.59 Personal history of other mental and behavioral disorders

== ENCOUNTER → 2019-04-30 | Outpatient (CLI) | payer OTHER, MEDICAID ==
--- NOTE | 2019-05-01 16:51 | PAINCON ---
[address] [address] PAIN MANAGEMENT CONSULTATION Name: FREDY HENNESSY Room: [facility] ChavezOrin#: [id number] Admission: 04/30/19 Attend Phys: Viktor Dean MD Discharge: Date of : 89 Report #: [id number] THIS REPORT FOR: //name// CC: Viktor Pompatings DATE OF SERVICE: 04/30/2019 CHIEF COMPLAINT: Here for medication renewal. "I moved into a new apartment on the 3rd floor." HISTORY: The patient is a 34-year-old gentleman who has been followed in the pain clinic. As you recall, he has chronic pain. It involves his low back and buttocks area. This pain has been problematic for a number of years. Continues to have pain that radiates down the middle of his back and down into the left butt cheek. He has moved. He helped move his items from the bottom floor to the top floor. He stands 4 feet 10 inches and his help was 6 feet. States that this was somewhat difficult because of the height differences. Overall, things have improved. He has had no complication from the medications. He has taken the medications as prescribed. He moved over a 2-3 day period of time. He feels that the hydrocodone continues to be beneficial. He feels he is about 75% improved with use of this medication. He has taken the medication as prescribed. He has returned today with the hope of continuing his medication and having it renewed. He suffers from agoraphobia. He is active and continues to work. Feels that he is good and staying out of the house. ALLERGIES: ASPIRIN AND REQUIP, REQUIP -- CAUSE TACHYCARDIA. CURRENT MEDICATIONS: Aripiprazole 10 mg, gabapentin 300 mg b.i.d., metoprolol 50 mg, quetiapine 50 mg, lamotrigine, and lisinopril. PAIN CLINIC ASSESSMENT/PQRS: 1. The patient is not being treated for osteoarthritis or rheumatoid arthritis. 2. Height 4 feet 10 inches, weight 142 pounds, BMI is 30.1. 3. VITAL SIGNS: Blood pressure 149/88, heart rate 106, respiratory rate 16, room air saturation is 98%. Pain intensity 5/10. 4. Fall history: The patient has not fallen in the last 3 months. 5. Blood thinner. The patient is not on a blood thinning medication. 6. Functional assessment tool, low for opioid use. 7. Recreational drug use. The patient denies use of recreational drugs. 8. Tobacco: The patient smokes cigarettes. Continues to try to decrease tobacco use. We have reminded him of the complications of chronic tobacco use. The patient has smoked for the last 15 years. Smokes 1-1/2 pack of cigarettes per day at this juncture. 9. Alcohol: The patient denies other than rare [place] [address] PAIN MANAGEMENT CONSULTATION Name: FREDY HENNESSY Room: [facility]#: [id number] Admission: 04/30/19 Attend Phys: Viktor Dean MD Discharge: Date of : 89 Report #: [id number] PHYSICAL EXAMINATION: GENERAL: The patient is a well-developed, well-nourished white male. Short in stature. He is alert and oriented x 3. His affect is appropriate. Speech is fluent. HEENT: Normocephalic, atraumatic. Extraocular eye muscles intact. Sclerae nonicteric. Mucous membranes are moist. NECK: Without adenopathy or JVD. The patient is wearing a facemask. He states that he is getting over an upper respiratory tract infection. LUNGS: Generally clear to auscultation. EXTREMITIES: Upper extremity muscle strength judged to be 5/5 for the major muscle groups in the upper extremity. Lower extremity muscle strength judged to be 5/5 for the major muscle groups in the lower extremity. The patient does have some pain and discomfort in his back with pain that radiates down into his left buttocks. Does have involvement of the left leg. IMPRESSION: 1. Agoraphobia -- stable at this juncture. The patient continues to feel that working outside the home is beneficial. 2. History of bipolar condition. 3. History of schizoaffective disorder. 4. Gastroesophageal reflux. 5. Diabetes. 6. Hypertension. 7. Nicotine use. 8. Depression after his brother was sentenced to 4 years in retirement. RECOMMENDATIONS: We discussed treatment options with the patient. At this juncture, we will continue with his medications. He feels medications are helpful. He is able to stay gainfully employed. He has been more active outside the home. Feels that the agoraphobia is improved with more activity outside the home. Continues to work. He has used this medication as prescribed. Keeps his medications in a guarded area. He is not thinking about harming himself. Has a bright outlook on things. We will continue with his medications. A script for the medications have been written. We have discussed the possible complications of opioid use. They include development of addiction as well as less effectiveness because of development of tolerance. The patient feels the medications are working well and would like to continue their use at this juncture. A script for his medications of hydrocodone 5 mg 1 p.o. b.i.d. have been rewritten. He will call us if he has any concerns. We would like to thank you for letting us participate in his care. We hope he continues to improve. We will continue with the patient's complex medical management using opioids. <ELECTRONICALLY SIGNED> By: Viktor Dean MD 05/01/19 1651 [id number]. Jesus Dean MD /nt
== END ==
LOC: M.PC 05:02
DX: Z76.0 Encounter for issue of repeat prescription (principal); F40.00 Agoraphobia, unspecified; I10 Essential (primary) hypertension; E11.9 Type 2 diabetes mellitus without complications; F32.9 Major depressive disorder, single episode, unspecified; F25.9 Schizoaffective disorder, unspecified; F25.0 Schizoaffective disorder, bipolar type; K21.9 Gastro-esophageal reflux disease without esophagitis; Z72.0 Tobacco use; Z79.899 Other long term (current) drug therapy; Z88.8 Allergy status to other drugs, medicaments and biological substances

== ENCOUNTER → 2019-05-28 | Outpatient (CLI) | payer OTHER, MEDICAID ==
--- NOTE | ~2019-05-28 | PAINCON ---
[address] [address] PAIN MANAGEMENT CONSULTATION Name: FREDY HENNESSY Room: [facility] John#: [id number] Admission: 05/28/19 Attend Phys: Viktor Dean MD Discharge: Date of : 89 Report #: [id number] THIS REPORT FOR: //name// CC: Viktor Pompatings DATE OF SERVICE: 05/28/2019 CHIEF COMPLAINT: "Here for medications. I did not do anything this weekend and it was good." HISTORY: The patient is a 34-year-old gentleman who has been followed in the pain clinic. As you recall, he has chronic pain. Has pain that involves his low back as well as buttocks area. He has had this problem for a number of years. Finds that his current medical regimen of hydrocodone can be beneficial. He does have a history of agoraphobia. Overall, he feels that he is able to get out and do more things. The medication enables him to stay gainfully employed. He states that he had a nice weekend. He did absolutely nothing. That is what he felt like doing. He has returned today for renewal of his medications. ALLERGIES: ASPIRIN AND REQUIP, CAUSE TACHYCARDIA. CURRENT MEDICATIONS: Aripiprazole 10 mg, gabapentin 300 mg b.i.d., metoprolol 50 mg, quetiapine 50 mg, lamotrigine, and lisinopril. PAIN CLINIC ASSESSMENT AND PQRS: 1. The patient is not being treated for osteoarthritis or rheumatoid arthritis. 2. Height 4 feet 10 inches, weight 137 pounds, BMI is 28.7. 3. Vital Signs: Blood pressure 148/113, heart rate 84, respiratory rate 16, room air saturation 99%, temperature is 98.3. 4. Pain intensity, 6/10. 5. Fall history. The patient has not fallen in the last 3 months. 6. Blood thinner. The patient is not on a blood thinning medication. 7. Functional assessment tool. 8. Risk assessment tool, low for opioid use. 9. Recreational drugs use. The patient denies use of recreational drugs. 10. Tobacco: The patient smokes cigarettes, smokes one-half pack of cigarettes per day and has smoked for the last 15 years. We have discussed the smoking cessation benefits. 11. Alcohol. The patient denies use of alcohol other than rare occasion. PHYSICAL EXAMINATION: GENERAL: The patient is a well-developed, well-nourished white male. Appears his stated age. He is alert and oriented x 3. His affect is appropriate. [place] [address] PAIN MANAGEMENT CONSULTATION Name: MICHELLE HENNESSYEW Rich Room: [facility]#: [id number] Admission: 05/28/19 Attend Phys: Viktor Dean MD Discharge: Date of : 89 Report #: [id number] HEENT: Normocephalic, atraumatic. Extraocular eye muscles intact. Sclerae nonicteric. Mucous membranes are moist. NECK: Without adenopathy or JVD. The patient had resolution of his respiratory problem seen last month. LUNGS: Generally clear to auscultation. EXTREMITIES: Upper extremity strength judged to be 5/5 for the major muscle groups in the upper extremity. Lower extremity muscle strength judged to be 5/5. The patient has some pain and discomfort in his low back area and pain that radiates down to his left buttocks. Does have involvement of the left leg as well. IMPRESSION 1. Agoraphobia, stable at this juncture. The patient continues to feel that working outside his home was beneficial. 2. History of bipolar condition. 3. History of schizoaffective disorder. 4. Gastroesophageal reflux. 5. Diabetes. 6. Hypertension. 7. Nicotine use. 8. Depression after his brother's sentenced 4 years in penitentiary. RECOMMENDATIONS: We discussed treatment options with the patient. At this juncture, we will continue with his medications. He feels medications are working well. He has taken the medication as prescribed. Keeps his medications in a guarded area. He is aware that opioid medications can after while become less effective secondary to development of tolerance. He overall feels that things are going reasonably well. He does not show any signs of dependency/addiction. He will call us if he has any concerns. We would like to thank you for letting us participate in his care. We hope he continues to improve. By: [id number]. Jesus Dean MD /MADHAVI
== END ==
LOC: M.PC 04:49
DX: M54.5 Low back pain (principal); F40.00 Agoraphobia, unspecified; F31.9 Bipolar disorder, unspecified; F20.9 Schizophrenia, unspecified; K21.9 Gastro-esophageal reflux disease without esophagitis; E11.9 Type 2 diabetes mellitus without complications; I10 Essential (primary) hypertension; F17.200 Nicotine dependence, unspecified, uncomplicated

== ENCOUNTER → 2019-06-25 | Outpatient (CLI) | payer OTHER, MEDICAID ==
--- NOTE | 2019-07-17 09:09 | PAINCON ---
[address] [address] PAIN MANAGEMENT CONSULTATION Name: FREDY HENNESSY Room: [facility] ClareKelly#: [id number] Admission: 06/25/19 Attend Phys: Viktor Dean MD Discharge: Date of : 89 Report #: [id number] THIS REPORT FOR: //name// CC: Viktor Pompatings DATE OF SERVICE: 06/25/2019 CHIEF COMPLAINT: Here for medications and things are going well. The weather is beginning to change and I am ready for fall. HISTORY OF PRESENT ILLNESS: The patient is a 34-year-old gentleman who has been followed in the pain clinic. He has chronic pain. Pain involves his low back. Continues to have pain that radiates down to the buttocks area. He has had this pain, which has been chronic. This has been going on for a number of years. He has found the use of hydrocodone beneficial. He is taking the medication as prescribed. He feels overall that things have improved in his life. He continues to work outside the house. As you know, he has a history of agoraphobia. He feels that things are going relatively well. Rates his pain as a 4/10. He has been seen the media information regarding vaping. He does smoke, but is not vaping. ALLERGIES: ASPIRIN, REQUIP, THEY CAUSE TACHYCARDIA. CURRENT MEDICATIONS: Aripiprazole 10 mg, gabapentin 300 mg b.i.d., metoprolol 50 mg, quetiapine 50 mg, lamotrigine, lisinopril. PAIN CLINIC ASSESSMENT/PQRS: 1. The patient is not being treated for osteoarthritis or rheumatoid arthritis. 2. Height 4 feet 9 inches, weight 145 pounds, BMI is 30. 3. Vital signs: Blood pressure 145/94, heart rate 98, respiratory rate 16, room air saturation 96%, temperature 98.2. 4. Pain intensity score 4/10. 5. Fall history: The patient has not fallen in the last 3 months. 6. Blood thinner. The patient is not on a blood thinning medication. 7. Hypertension. The patient is being treated for hypertension. 8. Opioids greater than 6 weeks. The [facility]. 9. Risk assessment tool, low for opioid use. 10. Recreational drug use. The patient denies use of recreational drugs. 11. Functional assessment tool 48/70. 12. Tobacco: The patient does smoke cigarettes, has smoked for the last 15 years. Discussed the benefits of smoking cessation. The patient declines use of vaping to get off tobacco given pulmonary problems before having. 13. Alcohol. The patient denies other than occasional [place] [address] PAIN MANAGEMENT CONSULTATION Name: DEMIFREDY ONEAL Rich Room: [facility]#: [id number] Admission: 06/25/19 Attend Phys: Viktor Dean MD Discharge: Date of : 89 Report #: [id number] PHYSICAL EXAMINATION: GENERAL: The patient is a well-developed, well-nourished, and small in structure and in stature white male. Appears his stated age. He is alert and oriented x 3. His affect is appropriate. Speech is fluent. HEAD, EYES, EARS, NOSE, AND THROAT: Normocephalic, atraumatic. Extraocular eye muscles intact. Sclerae nonicteric. Mucous membranes are moist. NECK: Without adenopathy or JVD. LUNGS: Clear to auscultation. EXTREMITIES: Upper extremity muscle strength judged to be 5/5 for the major muscle groups in the upper extremity. Lower extremity muscle strength is 5/5 for the major muscle groups. The patient continues to complain of pain and discomfort in his low back area with pain that continues radiating down to his left buttocks. Notes the involvement of his left leg. IMPRESSION: 1. Agoraphobia -- stable at this juncture. The patient continues to work outside of his home, finds this beneficial to his mental status. 2. History of bipolar condition: Stable. 3. History of schizoaffective disorder -- stable. 4. Gastroesophageal reflux. 5. Diabetes. 6. Hypertension. 7. Nicotine use. 8. Depression after brother, sentencing 4 years in shelter. RECOMMENDATIONS: We discussed treatment options with the patient. At this juncture, we will continue with his medications. He is aware that opioid medications can be helpful. He is taking a low amount of medications. He is aware that opioid medications can become less effective over time secondary to development of tolerance. He feels that his medications continue to be beneficial. He would like to continue with their use. He keeps them in a guarded area. We would like to thank you for letting us to participate in his care. A script for his medications of hydrocodone 5/325 one p.o. b.i.d. have been rewritten. The patient will call us if he has any concerns. <ELECTRONICALLY SIGNED> By: Viktor Dean MD 07/17/19 0909 [id number] 0930N. Jesus Dean MD /PMT
== END ==
LOC: M.PC 04:48
DX: F31.9 Bipolar disorder, unspecified (principal); K21.9 Gastro-esophageal reflux disease without esophagitis; E11.9 Type 2 diabetes mellitus without complications; I10 Essential (primary) hypertension; F17.200 Nicotine dependence, unspecified, uncomplicated; F40.00 Agoraphobia, unspecified; Z79.82 Long term (current) use of aspirin; Z88.8 Allergy status to other drugs, medicaments and biological substances; Z79.899 Other long term (current) drug therapy

== ENCOUNTER → 2019-07-23 | Outpatient (CLI) | payer OTHER, MEDICAID ==
--- NOTE | 2019-08-05 13:25 | PAINCON ---
[address] [address] PAIN MANAGEMENT CONSULTATION Name: FREDY HENNESSY [id number] Admission: 07/23/19 Attend Phys: Viktor Dean MD Discharge: Date of : 89 Report #: [id number] THIS REPORT FOR: //name// CC: Viktor Mi NP DATE OF SERVICE: 07/23/2019 CHIEF COMPLAINT: Here for medications, things are working pretty well. HISTORY: The patient is a 34-year-old gentleman who has been followed in the pain clinic because of chronic pain. He has pain in the low back area. This has continued to be problematic. He feels that overall things are going reasonably well. Has pain that radiates down the lower portion of his back and buttocks. He has found that hydrocodone helps with the pain. Does have a history of agoraphobia. He is more active at this juncture. He is outside of the house working. He feels that his medications continue to be beneficial and allow him to maintain his increased functional ability. He does have pain that since the weather has turned cold, has become a bit more bothersome. Pain radiates down into his legs bilaterally. He notes some stiffening of the legs as well. Rates his pain as a 4/10. States that he has taken the medication as prescribed. Walking, sitting, standing, lifting and bending can worsen the pain. Feels he is about 75% improved with his current medication use. ALLERGIES: ASPIRIN AND REQUIP CAUSE TACHYCARDIA. CURRENT MEDICATIONS: Aripiprazole 10 mg, gabapentin 300 mg b.i.d., metoprolol 50 mg quetiapine 50 mg, lamotrigine, lisinopril. PAIN CLINIC ASSESSMENT AND PQRS: 1. The patient is not being treated for osteoarthritis or rheumatoid arthritis. 2. Height 4 feet 10 inches, weight 149 pounds, BMI is 31. 3. Blood pressure 157/99, heart rate 95, respiratory rate 16, room air saturation 99%, temperature 98.1. 4. Pain intensity 01/02. 5. Fall history: The patient has not fallen in the last 3 months. 6. Blood thinner. The patient is not on a blood thinning medication. 7. Opioids greater than 6 weeks. The [facility]. 8. Risk assessment tool, low for opioid use. 9. Functional assessment tool. The patient denies use of recreational drugs. 10. Functional assessment tool 48 of 70. 11. Tobacco: The patient does smoke cigarettes, has smoked for the last 15 years. He is trying to decrease his smoking. 12. Alcohol. The patient denies use of alcohol other [place] [address] PAIN MANAGEMENT CONSULTATION Name: FREDY HENNESSY Room: [facility]#: [id number] Admission: 07/23/19 Attend Phys: Viktor Dean MD Discharge: Date of : 89 Report #: [id number] basis. PHYSICAL EXAMINATION: GENERAL: The patient is a well-developed, well-nourished white male. Small in stature. He is alert and oriented x 3. His affect is appropriate. Speech is fluent. HEENT: Normocephalic, atraumatic. Extraocular eye muscles intact. Sclerae nonicteric. Mucous membranes are moist. NECK: Without adenopathy or JVD. LUNGS: Clear to auscultation. EXTREMITIES: Upper extremity muscle strength judged to be 5/5 for the major muscle groups in the upper extremity. Lower extremity muscle strength judged to be 5-/5 for the major muscle groups in the lower extremity. The patient has pain and discomfort in lower portion of his back with pain that radiates down to the left buttocks and down into his legs on both sides today. IMPRESSION: 1. Agoraphobia -- stable at this juncture. The patient continues to work outside his home. Finds this activity beneficial to his mental status. 2. History of bipolar -- stable. 3. History of schizoaffective disorder, stable. 4. Gastroesophageal reflux. 5. Diabetes. 6. Hypertension. 7. Nicotine use. 8. Depression. RECOMMENDATIONS: We discussed treatment options with the patient. Risks and benefits of opioid use were discussed. The patient is aware that opioid medications can become less effective over time. He feels this medication is helpful. Weather has changed, he has noticed an increase in pain. Overall, he thinks that things have gone reasonably well and would like to continue with his medication. Keeps his medications in a guarded area. He is aware that 70,000 people last year as a result of overdosing of medications. He is not thinking of harming himself. Keeps his medications in a guarded area. A script for his medication of hydrocodone 5/325 one p.o. total of 60 tablets have been issued for this month. The patient will call us if he has any concerns. We would like to thank you for letting us participate in his care. We hope he continues to improve. <ELECTRONICALLY SIGNED> By: Viktor Dean MD 08/05/19 1325 [id number] 1427N. Jesus Dean MD /cherie
== END ==
LOC: M.PC 05:09
DX: Z76.0 Encounter for issue of repeat prescription (principal); K21.9 Gastro-esophageal reflux disease without esophagitis; E11.9 Type 2 diabetes mellitus without complications; I10 Essential (primary) hypertension; F40.00 Agoraphobia, unspecified; F31.9 Bipolar disorder, unspecified; F20.9 Schizophrenia, unspecified; F32.9 Major depressive disorder, single episode, unspecified; F17.210 Nicotine dependence, cigarettes, uncomplicated; Z88.6 Allergy status to analgesic agent; Z79.899 Other long term (current) drug therapy; Z79.891 Long term (current) use of opiate analgesic

== ENCOUNTER → 2019-08-20 | Outpatient (CLI) | payer OTHER, MEDICAID ==
--- NOTE | ~2019-08-20 | PAINCON ---
[address] [address] PAIN MANAGEMENT CONSULTATION Name: FREDY HENNESSY Room: [facility] MARIANO ChavezOrin#: [id number] Admission: 08/20/19 Attend Phys: Viktor Dean MD Discharge: Date of : 89 Report #: [id number] THIS REPORT FOR: //name// CC: Viktor Mi NP CHIEF COMPLAINT: "Things are going well. Still having some pain in the low back area." HISTORY: The patient is a 34-year-old gentleman who has been followed in the pain clinic. As you recall, he continues to have pain in the low back area. He has pain that radiates down into his leg. It is problematic in the buttocks area. He continues to find his medications helpful. Feels that the use of hydrocodone continues to make the pain tolerable. Continues to be gainfully employed. He has a history of agoraphobia. He feels that being able to work outside the house is quite good for him mentally. He is not having any problems with his medications. He notes that walking, sitting, standing can be problematic. He does find that the medication and sometimes use of his heat can be beneficial. He continues to try to decrease his use of tobacco. Notes that the pain is overall helpful with his medications. He would like to have these medications renewed. They do not cause any problems with his thinking. He does not feel that he is having any addictive behaviors. ALLERGIES: ASPIRIN AND REQUIP CAUSE TACHYCARDIA. CURRENT MEDICATIONS: Aripiprazole 10 mg, gabapentin 300 mg b.i.d., metoprolol 50 mg, quetiapine 50 mg, lamotrigine, lisinopril. PAIN CLINIC ASSESSMENT AND PQRS: 1. The patient is not being treated for osteoarthritis or rheumatoid arthritis. 2. Height 4 feet 10 inches, weight 149 pounds, BMI is 31. 3. Vital Signs: Blood pressure 152/95, heart rate 86, respiratory rate 16, room air saturation 97%, temperature 98.3. 4. Pain intensity of 6/10. 5. Fall history: The patient has not fallen in the last 3 months. 6. Blood thinner. The patient is not on a blood thinning medication. 7. Opioids greater than 6 weeks. The patient [facility]. 7. Risk assessment tool: Low for opioid use. 8. Functional assessment tool: The patient denies use of recreational drugs. 9. Tobacco: The patient does smoke cigarettes and is trying to decrease them. Has smoked for last 15 years. 10. Alcohol. The patient denies frequent use of alcoholic beverages. PHYSICAL EXAMINATION: [place] [address] PAIN MANAGEMENT CONSULTATION Name: MICHELLE HENNESSYEW Rich Room: [facility]#: [id number] Admission: 08/20/19 Attend Phys: Viktor Dean MD Discharge: Date of : 89 Report #: [id number] GENERAL: The patient is a well-developed, well-nourished, somewhat short in stature white male. Appears his stated age. He is alert and oriented x 3. His affect is appropriate. Speech is fluent. HEENT: Normocephalic, atraumatic. Extraocular eye muscles intact. Sclerae nonicteric. Mucous membranes are moist. NECK: Without adenopathy or JVD. LUNGS: Clear to auscultation. EXTREMITIES: Upper extremity muscle strength judged to be 5/5 for the major muscle groups in the upper extremity. Lower extremity muscle strength judged to be 5-/5 for the major muscle groups. The patient has pain and discomfort in low portion of his back with pain radiating down the left buttock and down into his legs on both left and right side. IMPRESSION: 1. Agoraphobia -- stable. The patient continues to work outside his home and finds this beneficial. 2. History of bipolar -- stable. 3. History of schizoaffective disorder -- stable. 4. Gastroesophageal reflux. 5. Diabetes. 6. Hypertension. 7. Nicotine use. The patient is trying to quit. 8. Depression. RECOMMENDATIONS: We discussed treatment options with the patient. At this juncture, we will continue with his medications. He finds the medication of hydrocodone is helpful. He continues to be outgoing. He does have agoraphobia. Feels that parking outside his house is beneficial. He is considering going to his mother's house for Thanksgiving. He will continue with his medications. There is no problem with his thinking. Keeps his medications in a guarded area. He is aware that opioid medications can be problematic in certain patients. They can develop problems with addiction. He has not show any signs of addiction. He will call us if he has any concerns. A script for his medications of hydrocodone 5 one p.o. b.i.d. has been rewritten. We would like to thank you for letting us participate in his care. We hope he continues to improve. By: [id number] [id number]. Jesus Dean MD /nt
== END ==
LOC: M.PC 05:29
DX: F40.00 Agoraphobia, unspecified (principal); F32.9 Major depressive disorder, single episode, unspecified; K21.9 Gastro-esophageal reflux disease without esophagitis; E11.9 Type 2 diabetes mellitus without complications; I10 Essential (primary) hypertension

== ENCOUNTER → 2019-09-10 | Outpatient (CLI) | payer OTHER, MEDICAID ==
[~2019-09-10] MED LIST changes: -LISINOPRIL10 MG PO; +LISINOPRIL20 MG PO; -NEURONTIN 300300 M1 PO; +NEURONTIN600 MG PO
--- NOTE | 2019-09-24 14:48 | PAINCON ---
[address] [address] PAIN MANAGEMENT CONSULTATION Name: MINOOFREDY Rich Room: [facility]#: [id number] Admission: 09/10/19 Attend Phys: Viktor Dean MD Discharge: Date of : 89 Report #: [id number] THIS REPORT FOR: //name// CC: Viktor Mi NP PRIMARY CARE PHYSICIAN: Diandra Mi NP The patient was seen on 09/10/2019 by Jesus Dean MD. FOLLOWUP: Medications are still very helpful, but not lasting as long on certain days. HISTORY: The patient is a 34-year-old gentleman who has been followed in the pain clinic because of chronic pain in the low back area. He suffers from pain that radiates down to his leg. It involves his buttocks. He remains gainfully employed. He finds that being out in the workforce is helpful. He also suffers from agoraphobia. Overall, things have been going reasonably well with him. He mentally feels that things have gone well. He has noted some increased pain and discomfort on certain days. He would like to increase his pain medication if possible. He is happy with the medications for him that it enables him to stay active. ALLERGIES: ASPIRIN AND REQUIP CAUSE TACHYCARDIA. CURRENT MEDICATIONS: Aripiprazole 10 mg, gabapentin 300 mg b.i.d., metoprolol 50 mg, quetiapine 15 mg, lamotrigine, and lisinopril. PAIN CLINIC ASSESSMENT/PQRS: 1. The patient is not being treated for osteoarthritis or rheumatoid arthritis. 2. Height 4 feet 10 inches, weight 149 pounds, BMI is 31. 3. Vital signs: Blood pressure 137/92, heart rate 110, respiratory rate 16, room air saturation 97%, and temperature 98.2. 4. Pain intensity 4/10. 5. Fall history: The patient has not fallen in the last 3 months. 6. Blood thinner: The patient is not on a blood thinning medication. 7. Opioids greater than 6 weeks: The [facility]. 8. Risk assessment tool: Moderate for opioid use. 9. Functional assessment tool: The patient denies use of recreational drugs. 10. Tobacco: The patient does smoke cigarettes and continues to try decreasing his tobacco. 11. Alcohol. The patient denies frequent use of alcoholic beverages. PHYSICAL EXAMINATION: GENERAL: The patient is a well-developed, well-[place] [address] PAIN MANAGEMENT CONSULTATION Name: DANKYVESFREDY Rich Room: [facility]#: [id number] Admission: 09/10/19 Attend Phys: Viktor Dean MD Discharge: Date of : 89 Report #: [id number] appears his stated age. He is alert and oriented x 3. His affect is appropriate. Speech is fluent. HEENT: Normocephalic, atraumatic. Extraocular eye muscles intact. Sclerae nonicteric. Mucous membranes are moist. NECK: Without adenopathy or JVD. LUNGS: Clear to auscultation. EXTREMITIES: Upper extremity muscle strength judged to be 5/5 for the major muscle groups in the upper extremity. The patient has pain and discomfort in the lower extremity, which he rates as 5-/5 for the major muscle groups. He has pain that radiates down to the lower portion of his back to his left buttocks and down into his left leg as well as in the right side. IMPRESSION: 1. Lumbar radicular pain in the low back area. 2. Agoraphobia, stable. The patient continues to work outside his house. 3. History of bipolar, stable. 4. History of schizoaffective disorder, stable. 5. Gastroesophageal reflux. 6. Diabetes. 7. Hypertension. 8. Nicotine, the patient is trying to quit. 9. Depression. RECOMMENDATIONS: We discussed treatment options with the patient. Risks and benefits of opioid medications have been discussed. Possible complications of chronic use have been reviewed. These medications can become less effective as time goes on secondary development of tolerance. The patient is taking his medication as prescribed. In later portion of the day on some days, he has more pain and discomfort. We will increase his medication and provide him with hydrocodone 5 mg one p.o. total of 105 tablets. He will take 1 p.o. b.i.d. The additional tablet will give him the opportunity on those days when his pain is more problematic to help control the pain. A script for his medications has been written. He will follow up in the near future. We would like to thank you for letting us participate in his care. We hope he continues to improve. The patient does not show any signs of addiction. He is taking his medications as prescribed. <ELECTRONICALLY SIGNED> By: Viktor Dean MD 09/24/19 1448 [id number]. Jesus Dean MD /nt
== END ==
LOC: M.PC 04:59
DX: G89.29 Other chronic pain (principal); M54.16 Radiculopathy, lumbar region; K21.9 Gastro-esophageal reflux disease without esophagitis; E11.9 Type 2 diabetes mellitus without complications; I10 Essential (primary) hypertension; F17.200 Nicotine dependence, unspecified, uncomplicated; F32.9 Major depressive disorder, single episode, unspecified; F40.00 Agoraphobia, unspecified; Z88.6 Allergy status to analgesic agent; Z79.891 Long term (current) use of opiate analgesic; Z79.899 Other long term (current) drug therapy

== ENCOUNTER → 2019-10-08 | Outpatient (CLI) | payer OTHER, MEDICAID ==
--- NOTE | ~2019-10-08 | PAINCON ---
[address] [address] PAIN MANAGEMENT CONSULTATION Name: FREDY HENNESSY [id number] Admission: 10/08/19 Attend Phys: Viktor Dean MD Discharge: Date of : 89 Report #: [id number] THIS REPORT FOR: //name// CC: Viktor Pompatings DATE OF SERVICE: 10/08/2019 CHIEF COMPLAINT: The pain has improved with the extra pill. HISTORY: The patient is a 34-year-old gentleman who has been followed in the pain clinic because of chronic pain in his low back area. He has had back pain for a number of years. He continues to find that the medication is helpful. Rates his pain as a 3/10. He was taking 5 mg b.i.d. At the last visit, his medication was increase to ____ mg tablets daily. He feels that this has been helpful. He would like to continue with his medications. They did not cause any problems with his sensorium. He is able to think clearly. He will continue to work outside of the home with less pain. ALLERGIES: ASPIRIN AND REQUIP CAUSE TACHYCARDIA. CURRENT MEDICATIONS: Aripiprazole 10 mg, gabapentin 300 mg b.i.d., metoprolol 50 mg, quetiapine 15 mg, lamotrigine and lisinopril. PAIN CLINIC ASSESSMENT AND PQRS: 1. The patient is not being treated for osteoarthritis or rheumatoid arthritis. 2. Height 4 feet 10 inches, weight 147 pounds, BMI is 30. 3. Vital Signs: Blood pressure 118/74, heart rate 75, respiratory rate 18, room air saturation 98%, temperature is 98.3. 4. Pain score 3/10. 5. Fall history: The patient has not fallen in the last 3 months. 6. Blood thinner. The patient is not on a blood thinning medication. 7. Opioids greater than 6 weeks. The [facility]. 8. Risk assessment tool, moderate for opioid. 9. Functional assessment tool has been reviewed. 10. Tobacco: The patient does smoke. We have discussed the benefits of smoking cessation. 11. Alcohol. The patient denies frequent use of alcoholic beverages. PHYSICAL EXAMINATION: GENERAL: The patient is a well-developed, well-nourished white male. He is short in stature. He is alert and oriented x 3. His affect is appropriate. Speech is fluent. HEENT: Normocephalic, atraumatic. Extraocular eye muscles intact. Sclerae nonicteric. Muc[place] [address] PAIN MANAGEMENT CONSULTATION Name: FREDY HENNESSY Room: [facility]#: [id number] Admission: 10/08/19 Attend Phys: Viktor Dean MD Discharge: Date of : 89 Report #: [id number] NECK: Without adenopathy or JVD. LUNGS: Clear to auscultation. MUSCULOSKELETAL: The patient complains of muscle pain and discomfort in lower portion of his back. Rates it as a 3/10 with his current medications. Upper extremity muscle strength judged to be 5/5 for the major muscle groups in the upper extremity. Pain in the back radiates down into his buttocks and into his left leg as well as the right leg. IMPRESSION: 1. Lumbar radicular pain, low back area. 2. Agoraphobia, stable. The patient continues to work outside his house. 3. History of bipolar, stable. 4. History of schizoaffective disorder, stable. 5. Gastroesophageal reflux. 6. Diabetes. 7. Hypertension. 8. Nicotine, the patient is trying to quit. 9. Depression, stable. RECOMMENDATIONS: We discussed treatment options with the patient. At this juncture, we will continue with his current medications. A script for his medications of hydrocodone 5/325, total of 75 tablets have been written. On the days when he has pain, which is more problematic he will have an additional pill to take for those periods of time. He will also continue with his gabapentin. He will continue with his medications as prescribed by his other doctors. He feels that the medications overall are helpful. He feels feel happy that he is able to stay gainfully employed and feels that being out of his house helps decrease his feelings of agoraphobia. He is aware that opioid medications can become less effective as time goes on secondary to development of tolerance. He is finding the medication is beneficial and would like to continue their use. He is aware that opioid medications in some patients have caused dependency. He has not shown any signs of dependency. His overall behavior appears to be baseline and normal. By: [id number]. Jesus Dean MD /nt
== END ==
LOC: M.PC 09:50
DX: M54.16 Radiculopathy, lumbar region (principal); E11.9 Type 2 diabetes mellitus without complications; K21.9 Gastro-esophageal reflux disease without esophagitis; I10 Essential (primary) hypertension; F40.00 Agoraphobia, unspecified

== ENCOUNTER → 2019-11-05 | Outpatient (CLI) | payer OTHER, MEDICAID ==
--- NOTE | 2019-11-08 08:24 | PAINCON ---
[address] [address] PAIN MANAGEMENT CONSULTATION Name: MINOOFREDY Rich Room: [facility]#: [id number] Admission: 11/05/19 Attend Phys: Viktor Dean MD Discharge: Date of : 89 Report #: [id number] THIS REPORT FOR: //name// cc: Diandra Mi NP, Stefany NP ~ THIS REPORT FOR: //name// CC: Viktor Mi NP CHIEF COMPLAINT: "The medicine helps with the back pain." HISTORY: The patient is a 34-year-old gentleman who has been followed in the Pain Clinic because of chronic pain involving his low back. He has pain in the buttocks area. Pain has been problematic for a number of years. He finds that his current regimen of gabapentin and hydrocodone are beneficial. He is able to stay gainfully employed. He does suffer from agoraphobia. He feels that the current medicines help with pain. He is able to stay active. He feels that his pain is about 50% improved with use of these medications. Still has problems with walking, sitting, standing and other activities. ALLERGIES: ASPIRIN, REQUIP ? TACHYCARDIA. CURRENT MEDICATIONS: Aripiprazole 10 mg, gabapentin 300 mg b.i.d., metoprolol 50 mg, quetiapine 50 mg, lamotrigine, lisinopril. PAIN CLINIC ASSESSMENT AND PQRS: 1. The patient is not being treated for osteoarthritis or rheumatoid arthritis. 2. Height: 4 feet and 11 inches, weight 148 pounds, BMI is 30. 3. Vital Signs: Blood pressure is 139/86, heart rate 98, respiratory rate 16, room air saturation 97%, temperature 98.2. 4. Pain score is 5/10. 5. Fall history: The patient has not fallen in the last 3 months. 6. Blood thinner: The patient is not on a blood thinning medication. 7. Hypertension: The patient is being treated for hypertension. 8. Opioids greater than 6 weeks. The [facility]. 9. Risk assessment tool: Moderate for opioid use. 10. Functional assessment tool has been reviewed. 11. Tobacco: The patient does smoke tobacco and continues to try to decrease tobacco use. 12. Alcohol: The patient denies frequent use of alcoholic beverages. PHYSICAL EXAMINATION: GENERAL: The patient is a well-developed, well-nourished white male. Appears his stated age. He is somewhat short in stature[place] [address] PAIN MANAGEMENT CONSULTATION Name: MINOOFREDY Rich Room: [facility]#: [id number] Admission: 11/05/19 Attend Phys: Viktor Dean MD Discharge: Date of : 89 Report #: [id number] HEENT: Normocephalic, atraumatic. Extraocular eye muscles intact. Sclerae are nonicteric. Mucous membranes are moist. NECK: Without adenopathy or JVD. HEART: Regular rate. ABDOMEN: Nontender. EXTREMITIES: Upper extremity muscle strength judged to be 5/5 for the major muscle groups. The patient has pain and discomfort in lower portion of his back. Muscle strength judged to be 5-/5 for the major muscle groups in the lower extremity. The patient has pain in the lower portion of his back. Some of it radiates down to his left buttocks and into the left leg as well as some pain and discomfort on the right side. IMPRESSION: 1. Lumbar radicular pain in low back area. 2. Agoraphobia -- stable. The patient continues to work outside his house. 3. History of bipolar, stable. 4. History of schizoaffective disorder, stable. 5. Gastroesophageal reflux. 6. Diabetes. 7. Hypertension. 8. Nicotine, trying to quit use of tobacco. 9. Depression. RECOMMENDATIONS: We discussed treatment options with the patient. At this juncture, we will continue with his medications. He feels the medications are beneficial. He has taken them as prescribed. He notes that some days pain is more problematic than others. He finds that the hydrocodone one p.o. b.i.d. is helpful. On the days when he has pain, which is more problematic he takes 3 tablets. He has been given a total of 75 tablets. A script for these medications has been rewritten. The patient will follow up in the future if needed. He will call us if he has any concerns. Again he seems to be doing relatively well. He is aware that opioid medications over a period of time can become less effective because of development of tolerance. <ELECTRONICALLY SIGNED> By: Viktor Dean MD 11/08/19 0824 [id number] 1300N. Jesus Dean MD /nt
== END ==
LOC: M.PC 03:25
DX: M54.16 Radiculopathy, lumbar region (principal); F40.00 Agoraphobia, unspecified; K21.9 Gastro-esophageal reflux disease without esophagitis; E11.9 Type 2 diabetes mellitus without complications; I10 Essential (primary) hypertension; F32.9 Major depressive disorder, single episode, unspecified; F17.200 Nicotine dependence, unspecified, uncomplicated; Z88.8 Allergy status to other drugs, medicaments and biological substances; Z79.899 Other long term (current) drug therapy

== ENCOUNTER → 2019-12-03 | Outpatient (CLI) | payer OTHER, MEDICAID ==
--- NOTE | 2019-12-20 09:00 | PAINCON ---
[address] [address] PAIN MANAGEMENT CONSULTATION Name: ALODNRAANABELFREDY FRANKLIN Rich Room: [facility]#: [id number] Admission: 12/03/19 Attend Phys: Viktor Dean MD Discharge: Date of : 89 Report #: [id number] THIS REPORT FOR: //name// cc: Diandra Mi NP, Stefany NP ~ THIS REPORT FOR: //name// CC: Viktor Mi NP DATE OF SERVICE: 12/04/2019 CHIEF COMPLAINT: Continued low back pain. HISTORY: The patient is a 34-year-old gentleman who has been followed in the pain clinic because of chronic low back pain. He rates his pain today as 4/10. He has been active. He feels that being active is beneficial. Continues to work outside of his house. As you recall, he suffers from agoraphobia. Notes that walking, sitting and standing can exacerbate his discomfort. He has used heat on his back. He does find rest is beneficial. Medications were efficacious as well. ALLERGIES: ASPIRIN, REQUIP CAUSE TACHYCARDIA. CURRENT MEDICATIONS: Aripiprazole 10 mg, gabapentin 300 mg b.i.d., metoprolol 50 mg, quetiapine 50 mg, lamotrigine, lisinopril. PAIN CLINIC ASSESSMENT AND PQRS: 1. The patient is not being treated for osteoarthritis or rheumatoid arthritis. 2. Height 4 feet 11, weight 149 pounds, BMI is 30.7. 3. Vital Signs: Blood pressure 127/87, heart rate 89, respiratory rate 16, room air saturation 98%, temperature 97.9. 4. Pain score 4/10. 5. Fall history: The patient has not fallen in the last 3 months. 6. Blood thinner. The patient is not on a blood thinning medication. 7. Hypertension. The patient is being treated for hypertension. 8. Opioids greater than 6 weeks. The patient received medication from [facility] pain clinic. 8. Risk assessment tool, low to moderate for opioid use. 9. Functional assessment tool. 10. Recreational drug use: The patient denies. 11. Tobacco: The patient does smoke tobacco and has tried to decrease its use. 12. Alcohol. The patient denies use of alcoholic beverages. PHYSICAL EXAMINATION: [place] [address] PAIN MANAGEMENT CONSULTATION Name: FREDY HENNESSY Room: [facility]#: [id number] Admission: 12/03/19 Attend Phys: Viktor Dean MD Discharge: Date of : 89 Report #: [id number] GENERAL: The patient is a well-developed, well-nourished white male. Somewhat short in stature. He is alert and oriented x 3. His affect is appropriate. Speech is fluent. HEENT: Normocephalic, atraumatic. Extraocular eye muscles intact. Sclerae nonicteric. Mucous membranes are moist. LUNGS: Clear to auscultation. ABDOMEN: Nontender. EXTREMITIES: Upper extremity muscle strength judged to be 5/5 for the major muscle groups in the upper extremity. The patient's muscle strength in the lower extremities judged to be 5-/5. The patient continues to have pain and discomfort that radiates down the left buttocks area and down into his left leg with pain and discomfort. IMPRESSION: 1. Lumbar radicular pain, low back area. 2. Agoraphobia, stable. The patient works outside the house. 3. History of bipolar -- stable. 4. History of schizoaffective disorder -- stable. 5. Gastroesophageal reflux. 6. Diabetes. 7. Hypertension. 8. Nicotine, the patient continues to try to decrease use of tobacco. RECOMMENDATIONS: We discussed treatment options with the patient. At this juncture, he feels medications are working reasonably well. He would like to continue with the medications. He keeps his medications in a guarded area. He is aware that the opioid medications can become less effective as time goes on. He is aware that some patients have developed addiction to the medication. He has taken the medication as prescribed. Keeps his medications in a guarded area. He feels that with his medications, he is able to continue to work outside of his home. Overall, he feels medications are working well and would like to continue their use. A script for his medications of hydrocodone one 5 mg tablet p.o. b.i.d. and on occasion t.i.d. have been provided. The patient has been provided 75 tablets. On those days when he finds his pain, particularly more problematic he can take an additional pill. We would like to thank you for letting us participate in his care. Hope he continues to improve. <ELECTRONICALLY SIGNED> By: Viktor Dean MD 12/20/19 0900 [id number]. Jesus Dean MD /nt
== END ==
LOC: M.PC 04:43
DX: M54.12 Radiculopathy, cervical region (principal); F40.00 Agoraphobia, unspecified; F31.9 Bipolar disorder, unspecified; I10 Essential (primary) hypertension; K21.9 Gastro-esophageal reflux disease without esophagitis; E11.9 Type 2 diabetes mellitus without complications; Z79.891 Long term (current) use of opiate analgesic

== ENCOUNTER → 2019-12-31 | Outpatient (CLI) | payer OTHER ==
--- NOTE | 2020-01-01 08:28 | PAINCON ---
[address] [address] PAIN MANAGEMENT CONSULTATION Name: ALONDRAANABELFREDY FRANKLIN Room: [facility]#: [id number] Admission: 12/31/19 Attend Phys: Viktor Dean MD Discharge: Date of : 89 Report #: [id number] THIS REPORT FOR: //name// cc: Diandra Mi NP, Stefany NP ~ THIS REPORT FOR: //name// CC: Viktor Mi DATE OF SERVICE: 12/31/2019 PRIMARY CARE PHYSICIAN: Diandra Mi NP CHIEF COMPLAINT: "The pain medicine is helpful. I am standing more and I have noticed more pain." HISTORY: The patient is a 34-year-old gentleman who has been followed in the pain clinic. As you may recall, he has chronic pain in the low back area. Rates his pain today as a 4/10. He is homeward bound because of the COVID-19 recommendations. Staying home has increased his pain. He is not working because of the COVID-19 stipulations. Because of staying inside more he notes worsening of his pain. Overall, he is 85-90% improved with his medications. He would like to continue with the medications because of the pain relief they are providing. He rates his pain as 5/10 at this point. He feels mentally stable. ALLERGIES: ASPIRIN, REQUIP CAUSE TACHYCARDIA. CURRENT MEDICATIONS: Aripiprazole 10 mg, gabapentin 300 mg 1 p.o. b.i.d., metoprolol 500 mg, quetiapine 50 mg, lamotrigine, lisinopril, hydrocodone 5/325 two and a half tablets daily. PAIN CLINIC ASSESSMENT AND PQRS: 1. The patient is not being treated for osteoarthritis or rheumatoid arthritis. 2. Height 4 feet 11 inches, weight 151 pounds, BMI is 32.1. 3. Vital signs: Blood pressure 127/89, heart rate 73, respiratory rate 16, room air saturation 98. 4. Temperature 98.4. 5. Pain intensity 02/01. 6. Fall history: The patient has not fallen in the last 3 months. 7. Blood thinner. The patient is not on a blood thinning medication. 8. Hypertension. The patient is being treated for hypertension. 9. Opioids greater than 6 weeks. The patient receives medications from the pain clinic. 10. Risk assessment tool, moderate for opioid use. 11. Functional assessment [place] [address] PAIN MANAGEMENT CONSULTATION Name: FREDY HENNESSY Room: [facility]#: [id number] Admission: 12/31/19 Attend Phys: Viktor Dean MD Discharge: Date of : 89 Report #: [id number] 12. Recreational drug use: The patient denies. 13. Tobacco: The patient does smoke tobacco and has continue to try to decrease its use. 14. Alcohol: The patient denies use of alcoholic beverages. PHYSICAL EXAMINATION: GENERAL: The patient is a well-developed, well-nourished white male. Appears his stated age. He is somewhat short in stature. He is alert and oriented x 3. HEENT: Normocephalic, atraumatic. Extraocular eye muscles intact. Sclerae nonicteric. Mucous membranes are moist. LUNGS: Clear to auscultation. ABDOMEN: Nontender. EXTREMITIES: Upper extremity muscle strength judged to be 5/5 for the major muscle groups in the upper extremity. The patient has some muscle strength in the lower area judged to be 5-/5. The patient continues to have pain that radiates down to his left buttocks and down into his left leg with pain and discomfort. IMPRESSION: 1. Lumbar radicular pain in low back area. 2. Agoraphobia -- stable. The patient is not working outside the house given the [employer] regulations. 3. History of bipolar -- stable at this juncture. 4. History of schizoaffective disorder, appears stable. 5. Gastroesophageal reflux. 6. Diabetes. 7. Hypertension. 8. Nicotine. The patient continues to try to decrease use of tobacco. RECOMMENDATIONS: We discussed treatment options with the patient. At this juncture, we will continue with his medication. He feels that the hydrocodone medication continues to be helpful. The patient has been taking 2-1/2 tablets per day. He feels that because of the lack of activity and being homeward bound that his pain level continues to escalate. He would like to try 3 tablets daily. We will increase the patient's hydrocodone to 5/325 one p.o. t.i.d. The patient will call us if he has any concerns. He is aware that opioid medications can become less effective as time goes on with the development of tolerance. Overall, he feels that things are going reasonably well given the home advisory from the [facility]. He will call us if he has any concerns. A script for hydrocodone 5/325 one p.o. t.i.d. have been written. We would like to thank you for letting us participate in his care. <ELECTRONICALLY SIGNED> By: Viktor Dean MD 01/01/20 0828 [id number]. Jesus Dean MD /MADHAVI
== END ==
LOC: M.PC 04:55
DX: M54.16 Radiculopathy, lumbar region (principal); K21.9 Gastro-esophageal reflux disease without esophagitis; E11.9 Type 2 diabetes mellitus without complications; I10 Essential (primary) hypertension; Z86.69 Personal history of other diseases of the nervous system and sense organs; Z88.1 Allergy status to other antibiotic agents; Z88.8 Allergy status to other drugs, medicaments and biological substances

== ENCOUNTER → 2020-01-28 | Outpatient (CLI) | payer OTHER ==
--- NOTE | 2020-01-29 08:03 | PAINCON ---
[address] [address] PAIN MANAGEMENT CONSULTATION Name: DEMIIKMMYFREDY Rich Room: [facility]#: [id number] Admission: 01/28/20 Attend Phys: Viktor Dean MD Discharge: Date of : 89 Report #: [id number] THIS REPORT FOR: //name// cc: Diandra Mi NP, Stefany NP ~ THIS REPORT FOR: //name// CC: Viktor Mi DATE OF SERVICE: 01/28/2020 CHIEF COMPLAINT: Continued low back pain. Pain medicines are helpful. HISTORY: The patient is a 34-year-old gentleman who has been followed in the pain clinic because of chronic low back pain. He finds that his medications continue to be helpful. He notes that he has been doing modified yoga at home. He has not returned to work yet. He is working and walking his dog up to half a mile. He feels that his medications are efficacious. He feels they are 80% - 90% helpful. He would like to continue with the medications. He is staying home because of the COVID-19 pandemic. He is not having any complications from his medications. He has returned today with a desire to have his medications renewed. ALLERGIES: ASPIRIN, REQUIP CAUSE TACHYCARDIA. CURRENT MEDICATIONS: Aripiprazole 10 mg, gabapentin 300 mg 1 p.o. b.i.d., metoprolol 500 mg, quetiapine 50 mg, lamotrigine, lisinopril, hydrocodone 5/325, 2.5 tablets daily. PAIN CLINIC ASSESSMENT AND PQRS: 1. The patient is not being treated for osteoarthritis or rheumatoid arthritis. 2. Height 4 feet 11 inches, weight 146 pounds, BMI is 31.1. 3. Vital signs: Blood pressure 128/93, heart rate 78, respiratory rate 16, room air saturation 98%, temperature 98.4. 4. Pain intensity 12/02. 5. Fall history: The patient has not fallen since we saw him last. 6. Blood thinner. The patient is not on a blood thinning medication. 7. Hypertension. The patient is being treated for hypertension. 8. Opioids greater than 6 weeks. The patient receives medication from the pain clinic. 9. Risk assessment tool, moderate for opioid use. 10. Functional assessment tool reviewed. 11. Recreational drug use. The patient denies. 12. Tobacco: The patient does smoke and is trying to decrease its use. 13. Alcohol. The patient [place] [address] PAIN MANAGEMENT CONSULTATION Name: FREDY HENNESSY Room: [facility]#: [id number] Admission: 01/28/20 Attend Phys: Viktor Dean MD Discharge: Date of : 89 Report #: [id number] PHYSICAL EXAMINATION: GENERAL: The patient is a well-developed, well-nourished white male. He appears his stated age. He is somewhat short in stature. He is alert and oriented x 3. His affect is appropriate. Speech is fluent. HEENT: Normocephalic, atraumatic. Extraocular eye muscles intact. Sclerae nonicteric. LUNGS: Generally clear. ABDOMEN: Nontender. EXTREMITIES: Upper extremity muscle strength judged to be 5/5 for the major muscle groups in the upper extremity. The patient continues to have some pain in the low back area. He has some pain that radiates down into his left leg and causes some discomfort. IMPRESSION: 1. Lumbar radicular pain in low back area. 2. Agoraphobia -- stable. The patient is staying at home as a result of the COVID-19 regulations. 3. History of bipolar, stable at this juncture. 4. History of schizoaffective disorder. 5. Gastroesophageal reflux. 6. Diabetes. 7. Hypertension. 8. Nicotine use. RECOMMENDATIONS: We discussed treatment options with the patient. At this juncture, we will continue with his medications. He is trying yoga and continues to try and increase his level of activity. He notes that things which exacerbate his pain continue to be walking, sitting for a prolonged period of time as well as standing. He feels that the hydrocodone medication is helpful. A script for hydrocodone 1 p.o. t.i.d. 5 mg has been provided. The patient will also continue with gabapentin 600 mg 1 p.o. b.i.d. Overall, he feels that things are going as well as can be expected given our time in the stress of the COVID-19 pandemic. We would like to thank you for letting us participate in his care. We hope he continues to improve. <ELECTRONICALLY SIGNED> By: Viktor Dean MD 01/29/20 0803 [id number]. Jesus Dean MD /nt
== END ==
LOC: M.PC 03:03
DX: M54.5 Low back pain (principal); E11.9 Type 2 diabetes mellitus without complications; K21.9 Gastro-esophageal reflux disease without esophagitis; F17.210 Nicotine dependence, cigarettes, uncomplicated; Z86.59 Personal history of other mental and behavioral disorders; Z98.890 Other specified postprocedural states; Z88.1 Allergy status to other antibiotic agents; Z88.8 Allergy status to other drugs, medicaments and biological substances; Z91.048 Other nonmedicinal substance allergy status; Z79.899 Other long term (current) drug therapy

== ENCOUNTER → 2020-02-25 | Outpatient (CLI) | payer OTHER ==
--- NOTE | 2020-03-13 08:03 | PAINCON ---
[address] [address] PAIN MANAGEMENT CONSULTATION Name: DANKSANTINOKIMMYFREDY Rich Room: [facility]#: [id number] Admission: 02/25/20 Attend Phys: Viktor Dean MD Discharge: Date of : 89 Report #: [id number] THIS REPORT FOR: //name// cc: Diandra Mi NP, Stefany NP ~ THIS REPORT FOR: //name// CC: Viktor Mi DATE OF SERVICE: 02/25/2020 CHIEF COMPLAINT: Here for medication renewal, things are going reasonably well. HISTORY: The patient is a 35-year-old gentleman who has been followed in the pain clinic because of chronic pain involving his lower back. He continues to have some pain that radiates down to his left leg. He is not being treated for osteoarthritis. The patient has been staying at home because of the COVID-19 pandemic. He has been getting out a little bit more. He is maintaining social isolation. He has not returned to work yet. He does walk his dog. He rates his pain as a 4/10. He notes his pain is about 90% improved with his current medication. Walking, sitting and standing can be problematic. He is continuing to take his medication, use heat and rest. He also is using stretching exercises and yoga. He has returned today for renewal of his medications. ALLERGIES: ASPIRIN, REQUIP, WHICH CAUSE TACHYCARDIA. CURRENT MEDICATIONS: Aripiprazole 10 mg, metoprolol 500 mg, quetiapine 50 mg, lamotrigine, lisinopril, hydrocodone 5/325 1 p.o. t.i.d., basically 2-1/2 tablets per day, gabapentin 600 mg 1 p.o. t.i.d. PAIN CLINIC ASSESSMENT AND PQRS: 1. The patient is not being treated for osteoarthritis or rheumatoid arthritis. 2. Height 4 feet 11 inches, weight 146 pounds, BMI is 30. 3. Vital signs: Blood pressure 124/77, heart rate 81, respiratory rate 16, room air saturation 98%, temperature 98.5. 4. Pain intensity 01/02. 5. Fall history: The patient has not fallen in the last 3 months. 6. Blood thinner. The patient is not on a blood thinning medication. 7. Hypertension. The patient is being treated for hypertension. 8. Opioids greater than 6 weeks. The patient receives medication from the pain clinic. 9. Risk assessment tool, moderate for opioid use. 10. Functional assessment tool reviewed. 11. Recreational drug use. The patient denies. 12. Tobacco: The patient does smoke and is trying to [place] [address] PAIN MANAGEMENT CONSULTATION Name: FREDY HENNESSY Room: [facility]#: [id number] Admission: 02/25/20 Attend Phys: Viktor Dean MD Discharge: Date of : 89 Report #: [id number] 13. Alcohol. The patient denies use of alcoholic beverages. PHYSICAL EXAMINATION: GENERAL: The patient is a well-developed, well-nourished white male. Appears his stated age. He is somewhat short in stature. He is alert and oriented x 3. His affect is appropriate. Speech is fluent. HEENT: Normocephalic, atraumatic. Extraocular eye muscles intact. Sclerae nonicteric. LUNGS: Clear to auscultation. ABDOMEN: Nontender. EXTREMITIES: Upper extremity muscle strength judged to be 5/5 for the major muscle groups in the upper extremity. The patient has some pain and discomfort that radiates down into his lower back involving the left leg, which continues to cause some discomfort. IMPRESSION: 1. Lumbar radiculopathy in the low back area. 2. Agoraphobia -- stable. The patient staying at home as required by law because of the COVID-19 pandemic. 3. History of bipolar, stable at this juncture. 4. History of schizoaffective disorder. 5. Gastroesophageal reflux. 6. Diabetes. 7. Hypertension. 8. Nicotine use. RECOMMENDATIONS: We discussed treatment options with the patient. At this juncture, we will continue with his medications. He is aware that the opioid medications can become less effective over time. He feels that the medications are helpful. He has no thought of harming himself. He would like to continue with his current regimen. He continues to feel that yoga is helpful. He is about 90% improved with his current medical regimen. He keeps his medications in a guarded area. We would like to thank you for letting us participate in his care. A script for his medications has been sent to his pharmacy. <ELECTRONICALLY SIGNED> By: Viktor Dean MD 03/13/20 [id number]. Jesus Dean MD /nt
== END ==
LOC: M.PC 04:55
PROVIDERS: ATTEND Anesthesiology Pain Medicine
DX: M54.16 Radiculopathy, lumbar region (principal); E11.9 Type 2 diabetes mellitus without complications; I10 Essential (primary) hypertension; F11.20 Opioid dependence, uncomplicated; F19.90 Other psychoactive substance use, unspecified, uncomplicated; Z79.899 Other long term (current) drug therapy; Z86.69 Personal history of other diseases of the nervous system and sense organs

== ENCOUNTER → 2020-03-24 | Outpatient (CLI) | payer OTHER ==
--- NOTE | ~2020-03-24 | PAINCON ---
[address] [address] PAIN MANAGEMENT CONSULTATION Name: DEMIKIMMYFREDY Rich Room: [facility]#: [id number] Admission: 03/24/20 Attend Phys: Viktor Dean MD Discharge: Date of : 89 Report #: [id number] THIS REPORT FOR: //name// cc: Diandra Mi NP, Stefany NP ~ THIS REPORT FOR: //name// CC: Viktor Mi DATE OF SERVICE: 03/24/2020 CHIEF COMPLAINT: "Things are going reasonably well, continued low back pain." FOLLOWUP HISTORY: The patient is a 35-year-old gentleman who has been followed in the Pain Clinic. He suffers from chronic back pain. Notes that he still has pain that radiates down into his left leg. He is not being treated for osteoarthritis. He has been staying at home because of COVID-19 pandemic. He has been maintaining social isolation. Feels that the medications of hydrocodone and gabapentin are beneficial. He has had no complication from their use. He would like to proceed with renewal of his medications. He finds that they are 80%-90% helpful in decreasing his pain. Notes that activity, walking, sitting, standing can be problematic. He does use heat to help control the pain as well as rest. He is thinking clearly. He is not having any complications from the medications. ALLERGIES: ASPIRIN, REQUIP CAUSE TACHYCARDIA. CURRENT MEDICATIONS: Aripiprazole 10 mg, metoprolol 500 mg, quetiapine 60 mg, lamotrigine, lisinopril, hydrocodone 5/325 one p.o. t.i.d., and gabapentin 600 mg 1 p.o. t.i.d. PAIN CLINIC ASSESSMENT AND PQRS: 1. The patient is not being treated for osteoarthritis or rheumatoid arthritis. 2. Height 4 feet 11 inches, weight 151 pounds, BMI 31, heart rate 71, respiratory rate 16, room air saturation is 98% and blood pressure 108/82. 3. Pain intensity 01/02. 4. Fall history: The patient has not fallen in the last 3 months. 5. Blood thinner. The patient is not on a blood thinning medication. 6. Hypertension. The patient is being treated for hypertension. 7. Opioids greater than 6 weeks. The patient received medication from the Pain Clinic. 8. Risk assessment: Moderate. 9. Functional assessment tool reviewed. 10. Recreational drug use. The patient denies. 11. Tobacco: The patient smokes and is trying to [place] [address] PAIN MANAGEMENT CONSULTATION Name: MINOOFREDY Rich Room: [facility]#: [id number] Admission: 03/24/20 Attend Phys: Viktor Dean MD Discharge: Date of : 89 Report #: [id number] 12. Alcohol. The patient denies use of alcoholic beverages. PHYSICAL EXAMINATION: GENERAL: The patient is a well-developed, well-nourished white male. Appears his stated age. He is alert and oriented x 3. His affect is appropriate. Speech is fluent. He is wearing a mask. LUNGS: Clear to auscultation. HEART: Regular rate. ABDOMEN: Nontender. EXTREMITIES: Upper extremity muscle strength judged to be 5/5 for the major muscle groups in the upper extremity. The patient has some pain and discomfort that radiates down to his lower back into the left leg, which continues to cause discomfort. IMPRESSION: 1. Lumbar radiculopathy in the low back area. 2. Agoraphobia -- stable. The patient has been staying at home because of COVID-19 pandemic. 3. History of bipolar, stable at this juncture. 4. History of schizoaffective disorder. 5. Gastroesophageal reflux. 6. Diabetes. 7. Hypertension. 8. Nicotine use. RECOMMENDATIONS: We discussed treatment options with the patient. At this juncture, he will continue with his medications. He feels that they are working well. He is able to think clearly. They are not causing any complications. He is aware that these medications can become less effective as time goes on because of development of tolerance. He feels that he is able to engage in activities with the medications. He is about 80%-85% improved with his medication regimen. He has used yoga. He feels that this is helpful. A script for his medications of hydrocodone 5/325 one p.o. t.i.d. has been provided. By: [id number]. Jesus Dean MD /cherie
== END ==
LOC: M.PC 04:49
PROVIDERS: ATTEND Anesthesiology Pain Medicine
DX: M54.16 Radiculopathy, lumbar region (principal); I10 Essential (primary) hypertension; E11.9 Type 2 diabetes mellitus without complications; K21.9 Gastro-esophageal reflux disease without esophagitis; F17.200 Nicotine dependence, unspecified, uncomplicated; F31.9 Bipolar disorder, unspecified; F40.01 Agoraphobia with panic disorder

== ENCOUNTER → 2020-04-21 | Outpatient (CLI) | payer OTHER ==
--- NOTE | 2020-04-22 09:00 | PAINCON ---
[address] [address] PAIN MANAGEMENT CONSULTATION Name: MINOOFREDY Rich Room: [facility]#: [id number] Admission: 04/21/20 Attend Phys: Viktor Dean MD Discharge: Date of : 89 Report #: [id number] THIS REPORT FOR: //name// cc: Diandra Mi Stefany RNP ~ THIS REPORT FOR: //name// CC: Viktor Mi DATE OF SERVICE: 04/21/2020 CHIEF COMPLAINT: Continued low back pain. HISTORY: The patient is a 35-year-old gentleman who has been followed in the Pain Clinic because of chronic pain. He still is having pain and discomfort, which is chronic in nature. It involves his low back and radiates down into his legs. He feels that his pain is improved about 80% with use of his medications. He has not had a significant change in his pain. He notes that activities of daily living can increase his discomfort. He is now considering a move. He is waiting for an apartment to become ready. He notes that walking, sitting, standing and other activities can make the pain worse. He uses his medications as well as heat to help improve his discomfort. He feels that the hydrocodone and gabapentin are beneficial. He would like to have his medications renewed today. ALLERGIES: ASPIRIN, REQUIP CAUSE TACHYCARDIA. CURRENT MEDICATIONS: Aripiprazole 10 mg, metoprolol 500 mg, quetiapine 60 mg, lamotrigine, lisinopril/hydrocodone 5/325 one p.o. t.i.d., and gabapentin 600 mg 1 p.o. t.i.d. PAIN CLINIC ASSESSMENT AND PQRS: 1. The patient is not being treated for osteoarthritis or rheumatoid arthritis. 2. Height 4 feet 11 inches, weight 150 pounds, and BMI is 30. 3. Vital signs: Blood pressure 130/85, heart rate 75, respiratory rate 16, room air saturation 99%, and temperature 98.0. 4. Pain intensity 12/02. 5. Fall history: The patient has not fallen in the last 3 months. 6. Blood thinner. The patient is not on a blood thinning medication. 7. Hypertension. The patient is being treated for hypertension. 8. Opioids greater than 6 weeks. The patient receives medication from the Pain Clinic. 9. Risk assessment tool, moderate. 10. Functional assessment tool reviewed. 11. Recreational drug use. [place] [address] PAIN MANAGEMENT CONSULTATION Name: FREDY HENNESSY Room: [facility]#: [id number] Admission: 04/21/20 Attend Phys: Viktor Dean MD Discharge: Date of : 89 Report #: [id number] 12. Tobacco: The patient smokes and tries to decrease his use of tobacco. 13. Alcohol: The patient rarely drinks alcoholic beverages. PHYSICAL EXAMINATION: GENERAL: The patient is a well-developed, well-nourished white male. Appears his stated age. He is alert and oriented x 3. His affect is appropriate. Speech is fluent. HEENT: Normocephalic, atraumatic. Extraocular eye muscles intact. The patient is wearing a mask. NECK: Without adenopathy. HEART: Regular rate. LUNGS: Clear. ABDOMEN: Nontender. EXTREMITIES: Upper extremity muscle strength 5/5 for the major muscle groups in the upper extremity. The patient has some pain and discomfort in lower portion of his back and notes pain that radiates down his back and into the left leg, which continues to cause discomfort. IMPRESSION: 1. Lumbar radiculopathy in the low back area. 2. Agoraphobia -- stable. The patient continues to senior living ____ in place because of the COVID-19 pandemic. 3. History of bipolar, stable at this juncture. 4. History of schizoaffective disorder. 5. Gastroesophageal reflux. 6. Diabetes. 7. Hypertension. 8. Nicotine use. RECOMMENDATIONS: We discussed treatment options with the patient. At this juncture, we will continue with his medications. He feels that the medications are helpful. Enable him to engage in activities, so he would not be able to without their use. He has returned today for renewal of his medications. He is aware that opioid medications can cause some patients to form an addiction. He has not shown any signs of addiction. He has taken his medication as prescribed. Keeps them in a guarded area. He is getting about 80% improvement with his medications. He continues to stretch and used to do yoga. We would like to thank you for letting us participate in his care. We hope he continues to improve. <ELECTRONICALLY SIGNED> By: Viktor Dean MD 04/22/20 0900 [id number]. Jesus Dean MD /nt
== END ==
LOC: M.PC 05:13
PROVIDERS: ATTEND Anesthesiology Pain Medicine
DX: M54.16 Radiculopathy, lumbar region (principal); F25.1 Schizoaffective disorder, depressive type; K21.9 Gastro-esophageal reflux disease without esophagitis; E11.9 Type 2 diabetes mellitus without complications; I10 Essential (primary) hypertension; F17.200 Nicotine dependence, unspecified, uncomplicated; Z88.8 Allergy status to other drugs, medicaments and biological substances; Z86.59 Personal history of other mental and behavioral disorders; Z79.899 Other long term (current) drug therapy

== ENCOUNTER → 2020-05-19 | Outpatient (CLI) | payer OTHER ==
--- NOTE | ~2020-05-19 | PAINCON ---
[address] [address] PAIN MANAGEMENT CONSULTATION Name: MINOOFREDY Rich Room: [facility]#: [id number] Admission: 05/19/20 Attend Phys: Viktor Dean MD Discharge: Date of : 89 Report #: [id number] THIS REPORT FOR: //name// cc: Diandra Mi Stefany RNP ~ THIS REPORT FOR: //name// CC: Viktor Mi DATE OF SERVICE: 05/19/2020 CHIEF COMPLAINT: "The medications are still helpful." HISTORY: The patient is a 35-year-old gentleman who has been followed in the pain clinic. As you recall, he suffers from chronic back pain. He has pain, which radiates down his back and into his legs. He feels that his pain is about 90% improved with his current medical management. He has taken the medication as prescribed. He feels that the hydrocodone medication continue to be beneficial. He uses gabapentin. This medication in conjunction with the hydrocodone seems to be helpful. He is somewhat stressed as we all are in regards to the COVID-19 pandemic. He has been watching it on television. Concerned about the increased up kick in infections in the [place] area. He would like to continue with his medications. ALLERGIES: ASPIRIN, REQUIP CAUSE TACHYCARDIA. CURRENT MEDICATIONS: Aripiprazole 10 mg, metoprolol 500 mg, quetiapine 600 mg, lamotrigine, lisinopril 20 mg, hydrocodone 5/325 t.i.d., gabapentin 600 mg 1 p.o. t.i.d. PAIN CLINIC ASSESSMENT AND PQRS: 1. The patient is not being treated for osteoarthritis or rheumatoid arthritis. 2. Height 4 feet 11 inches, weight 150 pounds, BMI 30, blood pressure 136/84, heart rate 74, respiratory rate 16, room air saturation is 99%, temperature 97.1. 3. Pain intensity: 10. 4. Fall history: The patient has not fallen in the last 3 months. 5. Blood thinner: The patient is not on a blood thinning medication. 6. Hypertension: The patient is being treated for hypertension. 7. Opioids greater than 6 weeks: The patient received medication from one source the pain clinic. 8. Risk assessment tool: Moderate. 9. Functional assessment tool: 34. 10. Recreational drug use: The patient denies. 11. Tobacco: The patient does smoke and continues [place] [address] PAIN MANAGEMENT CONSULTATION Name: MINOOFREDY Rich Room: [facility]#: [id number] Admission: 05/19/20 Attend Phys: Viktor Dean MD Discharge: Date of : 89 Report #: [id number] of tobacco. 12. Alcohol: The patient rarely drinks alcoholic beverages. PHYSICAL EXAMINATION: GENERAL: The patient is a well-developed, well-nourished white male. Appears his stated age. He is alert and oriented x 3. His affect is appropriate. Speech is fluent. HEENT: Normocephalic, atraumatic. Extraocular eye muscles are intact. Sclerae nonicteric. Mucous membranes are moist. The patient is wearing a mask. NECK: Without adenopathy or JVD. HEART: Regular rate. LUNGS: Clear. ABDOMEN: Nontender. EXTREMITIES: Upper extremity muscle strength 5-/5 for the major muscle groups in the upper extremity. Lower extremity, the patient has pain and discomfort judged as strength of 5/5 for the major muscle groups in the lower extremity. The patient has pain that is radiating down to his lower back and down to his left leg and continues to be problematic and cause discomfort. IMPRESSION: 1. Lumbar radiculopathy in the low back area. 2. Agoraphobia -- stable. The patient is staying [id number] because of COVID-19. 3. History of bipolar, stable at this juncture. 4. History of schizoaffective disorder. 5. Gastroesophageal reflux. 6. Diabetes. 7. Hypertension. 8. Nicotine use. RECOMMENDATIONS: We discussed treatment options with the patient. At this juncture, he feels his medications are helpful. They are providing him about 90% improvement in his pain character. We will continue with his medication. He will call us if he has any concerns. He is aware that opioid medications can become problematic with some patients. He has taken the medication as prescribed. He has not shown any signs of dependence. We would like to thank you for letting us participate in his care. We hope he continues to improve. A script for his medication of hydrocodone 5/325, total of 90 tablets have been written for the following month. By: [id number]. Jesus Dean MD /nt
== END ==
LOC: M.PC 08:00
PROVIDERS: ATTEND Anesthesiology Pain Medicine
DX: M54.16 Radiculopathy, lumbar region (principal); G89.29 Other chronic pain; K21.9 Gastro-esophageal reflux disease without esophagitis; E11.9 Type 2 diabetes mellitus without complications; I10 Essential (primary) hypertension; F17.200 Nicotine dependence, unspecified, uncomplicated; Z86.59 Personal history of other mental and behavioral disorders; Z88.8 Allergy status to other drugs, medicaments and biological substances; Z79.899 Other long term (current) drug therapy

== ENCOUNTER → 2020-06-16 | Outpatient (CLI) | payer OTHER ==
--- NOTE | ~2020-06-16 | PAINCON ---
[address] [address] PAIN MANAGEMENT CONSULTATION Name: MICHELLE HENNESSYEW Rich Room: [facility]#: [id number] Admission: 06/16/20 Attend Phys: Viktor Dean MD Discharge: Date of : 89 Report #: [id number] THIS REPORT FOR: //name// cc: Diandra Mi Stefany RNP ~ THIS REPORT FOR: //name// CC: Viktor Mi DATE OF SERVICE: 06/16/2020 CHIEF COMPLAINT: Here for medication renewal. HISTORY: The patient is a 35-year-old gentleman who has been followed in the pain clinic and has had pain and discomfort since 2008. Finds that his medications continue to be helpful. Notes that with changes in temperature, activity, walking, sitting and standing. He can notice some problems with his pain. The pain is about 80-90% improved with his current medical regimen of gabapentin and Sherman. He has been sheltering at home because of COVID-19. He feels overall that things are going as well as could be expected given our trouble times. ALLERGIES: ASPIRIN, REQUIP cause tachycardia. CURRENT MEDICATIONS: Aripiprazole 10 mg, metoprolol 100 mg, quetiapine 600 mg, lamotrigine, lisinopril 20 mg, hydrocodone 5/325 one p.o. t.i.d., gabapentin 600 mg 1 p.o. t.i.d. PAIN CLINIC ASSESSMENT AND PQRS: 1. The patient is not being treated for osteoarthritis or rheumatoid arthritis. 2. Height 5 feet 4 inches, weight 145 pounds, BMI is 30. 3. Vital signs: Blood pressure 137/94, heart rate 77, respiratory rate 16, room air saturation is 98, temperature 97.4. 4. Pain intensity 5/10. 5. Fall history: The patient has not fallen in the last 3 months. 6. Blood thinner. The patient is not on a blood thinning medication. 7. Hypertension. The patient is being treated for hypertension. 8. Opioids greater than 6 weeks. The patient receives medications from the pain clinic. 9. Risk assessment tool, moderate. 10. Functional assessment tool 34/70. 11. Recreational drug use. The patient denies. 12. Tobacco: The patient does smoke and continues to try to decrease his tobacco use. 13. Alcohol. The patient [place] [address] PAIN MANAGEMENT CONSULTATION Name: FREDY HENNESSY Room: [facility]#: [id number] Admission: 06/16/20 Attend Phys: Viktor Dean MD Discharge: Date of : 89 Report #: [id number] PHYSICAL EXAMINATION: GENERAL: The patient is a well-developed, well-nourished white male. Appears his stated age. He is alert and oriented x 3. His affect is appropriate. Speech is fluent. HEENT: Normocephalic, atraumatic. Extraocular eye muscles intact. Sclerae nonicteric. Mucous membranes are moist. The patient is wearing a facial covering. NECK: Without adenopathy or JVD. HEART: Regular rate. LUNGS: Clear. ABDOMEN: Nontender. EXTREMITIES: Upper extremity muscle strength judged to be 5/5 for the major muscle groups in the upper extremity. The patient has pain in the lower portion of his back with pain that radiates down into the lumbar area. IMPRESSION: 1. Pain in the left leg that continues to be problematic. 2. Agoraphobia -- stable. The patient is staying correction in place because of COVID-19. 2. History of bipolar, stable at this juncture. 3. History of schizoaffective disorder. 4. Gastroesophageal reflux. 5. Diabetes. 6. Hypertension. 7. Nicotine use. RECOMMENDATIONS: We discussed treatment options with the patient. The patient is aware that opioid medications can become less effective as time goes on. He feels that these medications enable him to engage in activities he would find it more difficult without them. He rates his pain as about 85-90% improved with the medications. He has taken the medication as prescribed. Keeps them in a guarded area. He is sheltering at home. He is concerned as he feels mostly ____ about the COVID-19 pandemic. A script for his medications has been written. He will continue with gabapentin 600 mg 1 p.o. b.i.d. He will continue with Sherman 5/325 one p.o. t.i.d. He will follow up in about 1 month. He will call us if he has any concerns. We would like to thank you for letting us participate in his care. We hope he continues to improve. By: [id number]. Jesus Dean MD /cherie
== END ==
LOC: M.PC 08:32
PROVIDERS: ATTEND Anesthesiology Pain Medicine
DX: M79.605 Pain in left leg (principal); F40.00 Agoraphobia, unspecified; K21.9 Gastro-esophageal reflux disease without esophagitis; E11.9 Type 2 diabetes mellitus without complications; I10 Essential (primary) hypertension; Z72.0 Tobacco use; Z79.899 Other long term (current) drug therapy

== ENCOUNTER → 2020-07-14 | Outpatient (CLI) | payer OTHER ==
--- NOTE | ~2020-07-14 | PAINCON ---
[address] [address] PAIN MANAGEMENT CONSULTATION Name: MINOOFREDY Rich Room: [facility]#: [id number] Admission: 07/14/20 Attend Phys: Viktor Dean MD Discharge: Date of : 89 Report #: [id number] THIS REPORT FOR: //name// cc: Diandra Mi Stefany RNP ~ THIS REPORT FOR: //name// CC: Viktor Mi DATE OF SERVICE: 07/14/2020 CHIEF COMPLAINT: "Things are going pretty well." HISTORY: The patient is a 35-year-old gentleman who has been followed in the pain clinic because of chronic pain. He has pain, which continues to be problematic. It is primarily in his low back area. He still has pain that radiates down into his leg. This has been problematic since 2008. He notes that activities such as walking, sitting, standing can be problematic. He does note some improvement with use of his medications. Heat and rest are beneficial as well. Overall, things are going reasonably well. He is trying to stay free of the COVID-19. It is ____ high of 60,000 patients become and positive per day. He is staying sheltered at home as much as possible. ALLERGIES: ASPIRIN, REQUIP CAUSE TACHYCARDIA. CURRENT MEDICATIONS: Aripiprazole 10 mg, metoprolol 100 mg, quetiapine 600 mg, lamotrigine, lisinopril 20 mg, hydrocodone 5/325 one p.o. t.i.d., gabapentin 600 mg 1 p.o. t.i.d. PAIN CLINIC ASSESSMENT AND PQRS: 1. The patient is not being treated for osteoarthritis or rheumatoid arthritis. 2. Height 5 feet 4 inches, weight 151 pounds, BMI is 30. 3. Blood pressure 124/89, heart rate 81, respiratory rate 16, room air saturation 98%. 4. Pain intensity 5/10. 5. Fall history: The patient has not fallen in the last 3 months. 6. Blood thinner. The patient is not on a blood thinning medication. 7. Hypertension. The patient is being treated for hypertension. 8. Opioids greater than 6 weeks. The patient received medication from the pain clinic. 9. Risk assessment tool, moderate for opioid use. 10. Functional assessment tool 34/70. 11. Recreational drug use. The patient denies. 12. Tobacco: The patient does smoke. 13. Alcohol: The [place] [address] PAIN MANAGEMENT CONSULTATION Name: FREDY HENNESSY Room: [facility]#: [id number] Admission: 07/14/20 Attend Phys: Viktor Dean MD Discharge: Date of : 89 Report #: [id number] PHYSICAL EXAMINATION: GENERAL: The patient is a well-developed, well-nourished white male. Appears his stated age. He is somewhat short for stature. His affect is appropriate. Speech is fluent. HEENT: Normocephalic, atraumatic. Extraocular eye muscles intact. Sclerae nonicteric. Mucous membranes are moist. The patient is wearing a facial covering. NECK: Without adenopathy or JVD. HEART: Regular rate. LUNGS: Clear to auscultation. ABDOMEN: Nontender. EXTREMITIES: Upper extremity muscle strength judged to be 5/5 for the major muscle groups in the upper extremity. The patient has some pain and discomfort in the ____ extremity with pain down his back and radiating down into the lumbar area. IMPRESSION: 1. Pain in the left leg that continues to be problematic. 2. Agoraphobia -- stable. The patient is sheltering in place because of COVID-19. 3. History of bipolar, stable at this juncture. 4. History of schizoaffective disorder appears stable. 5. Gastroesophageal reflux. 6. Diabetes. 7. Hypertension. 8. Nicotine use. RECOMMENDATIONS: We discussed treatment options with the patient. We will continue with his medications. He is trying to chcf at home. ____ COVID-19. He is aware that this problem is might be take some time. He is awaiting the injections/vaccination in the future. We would like to thank you for letting us participate in his care. A script for gabapentin 600 mg 1 p.o. b.i.d. has been provided. The patient will also continue with hydrocodone 5/325 one p.o. t.i.d. He will follow up in a month. We would like to thank you for letting us participate in his care. We hope he continues to improve. By: [id number]. Jesus Dean MD /nt
== END ==
LOC: M.PC 07:56
PROVIDERS: ATTEND Anesthesiology Pain Medicine
DX: M79.605 Pain in left leg (principal); F40.00 Agoraphobia, unspecified; K21.9 Gastro-esophageal reflux disease without esophagitis; E11.9 Type 2 diabetes mellitus without complications; I10 Essential (primary) hypertension; F17.200 Nicotine dependence, unspecified, uncomplicated; F31.9 Bipolar disorder, unspecified; Z86.59 Personal history of other mental and behavioral disorders; Z88.8 Allergy status to other drugs, medicaments and biological substances; Z79.899 Other long term (current) drug therapy

== ENCOUNTER → 2020-08-11 | Outpatient (CLI) | payer OTHER ==
--- NOTE | 2020-08-27 14:42 | PAINCON ---
[address] [address] PAIN MANAGEMENT CONSULTATION Name: FREDY HENNESSY Room: [facility]#: [id number] Admission: 08/11/20 Attend Phys: Viktor Dean MD Discharge: Date of : 89 Report #: [id number] THIS REPORT FOR: //name// cc: Diandra Mi Stefany RNP ~ CC: Viktor Mi DATE OF SERVICE: 08/11/2020 CHIEF COMPLAINT: Things are going reasonably well. HISTORY: The patient is a 35-year-old gentleman who has been followed in the pain clinic. As you may recall, he has chronic low back pain. This has been problematic since 2008. He finds that his medications are helpful. The gabapentin and hydromorphone are beneficial. Rates his pain as an 85-90% improvement with their use. He has had no complication from the use of his medications. He has returned today for renewal of the medications. Notes that walking, sitting, standing, climbing stairs, and other activities of daily living can impact his pain. He has been using heat, medication and rest. Overall, things are going well. He is able to think clearly. He has taken the medication as prescribed. He would like to have the medications renewed. ALLERGIES: ASPIRIN, REQUIP CAUSE TACHYCARDIA. CURRENT MEDICATIONS: Aripiprazole 10 mg, metoprolol 100 mg, quetiapine 600 mg, lamotrigine, lisinopril 20 mg, hydrocodone 5/325 one p.o. t.i.d., gabapentin 600 mg 1 p.o. t.i.d. PAIN CLINIC ASSESSMENT AND PQRS: 1. The patient is not being treated for osteoarthritis or rheumatoid arthritis. 2. Height 5 feet 4 inches, weight 148 pounds, BMI is 30. 3. Vital Signs: Blood pressure 138/77, heart rate 78, respiratory rate 16, room air saturation 96%, temperature 98.3. 4. Pain intensity 01/02. 5. Fall history: The patient has not fallen in the last 3 months. 6. Blood thinner. The patient is not on a blood thinning medication. 7. Hypertension. The patient is being treated for hypertension. 8. Opioids greater than 6 weeks. The patient received medication from the pain clinic. 9. Risk assessment tool, moderate. 10. Functional assessment tool 3470. 11. Recreational drug use: The patient denies. 12. Tobacco: The patient does smoke and is trying to [place] [address] PAIN MANAGEMENT CONSULTATION Name: MICHELLE HENNESSYEW Rich Room: [facility]#: [id number] Admission: 08/11/20 Attend Phys: Viktor Dean MD Discharge: Date of : 89 Report #: [id number] 13. Alcohol: The patient rarely drinks alcoholic beverages. PHYSICAL EXAMINATION: GENERAL: The patient is a well-developed, well-nourished white male. Appears his stated age. He is alert and oriented x 3. His affect is appropriate. Speech is fluent. HEENT: Normocephalic, atraumatic. Extraocular eye muscles intact. Sclerae are nonicteric. Mucous membranes are moist. NECK: The patient is without adenopathy or JVD. The patient has facial covering. HEART: Regular rate. LUNGS: Clear. ABDOMEN: Nontender. EXTREMITIES: Upper extremity muscle strength judged to be 5/5 for the major muscle groups in the upper extremity. The patient has pain and discomfort in the lower portion of his back that radiates down into the lumbar area. IMPRESSION: 1. Pain in the left leg, which continues to be problematic. 2. Agoraphobia -- stable. The patient has sheltered in place because of COVID-19. 3. History of bipolar, stable. 4. History of schizoaffective disorder appears stable. 5. Gastroesophageal reflux. 6. Diabetes. 7. Hypertension. 8. Nicotine use. RECOMMENDATIONS: We discussed treatment options with the patient. At this juncture, we will continue with his medications of hydrocodone. He is aware that opioid medications can become less effective as time goes on because of development of tolerance. He feels overall that these medications are helpful. His pain is about 80-95% improved with their use. He also feels that gabapentin medication is helpful. He continues with 600 mg 1 p.o. b.i.d. The patient will continue to have his medications. He is aware that opioid medications can cause some patients to develop addiction/problem with opioid medications. He has not shown any signs of addiction. We would like to thank you for letting us participate in his care. A script for his medications has been provided to the patient for the next 2 months. <ELECTRONICALLY SIGNED> By: Viktor Dean MD 08/27/20 [id number]. Jesus Dean MD /nt
== END ==
LOC: M.PC 08:09
PROVIDERS: ATTEND Anesthesiology Pain Medicine
DX: M54.5 Low back pain (principal); G89.29 Other chronic pain; I10 Essential (primary) hypertension

== ENCOUNTER → 2020-09-08 | Outpatient (CLI) | payer OTHER | LOC: M.PC 08:23 | PROVIDERS: ATTEND Anesthesiology Pain Medicine | DX: M54.5 Low back pain (principal); G89.29 Other chronic pain; F40.00 Agoraphobia, unspecified; I10 Essential (primary) hypertension; E11.9 Type 2 diabetes mellitus without complications; K21.9 Gastro-esophageal reflux disease without esophagitis; F17.210 Nicotine dependence, cigarettes, uncomplicated; Z86.59 Personal history of other mental and behavioral disorders; Z79.899 Other long term (current) drug therapy ==

== ENCOUNTER → 2020-10-06 | Outpatient (CLI) | payer OTHER | LOC: M.PC 08:30 | PROVIDERS: ATTEND Anesthesiology Pain Medicine | DX: M54.5 Low back pain (principal); G89.29 Other chronic pain; K21.9 Gastro-esophageal reflux disease without esophagitis; E11.9 Type 2 diabetes mellitus without complications; I10 Essential (primary) hypertension; M79.605 Pain in left leg; F40.00 Agoraphobia, unspecified; Z86.59 Personal history of other mental and behavioral disorders; Z88.8 Allergy status to other drugs, medicaments and biological substances; Z79.899 Other long term (current) drug therapy ==

== ENCOUNTER → 2020-11-03 | Outpatient (CLI) | payer OTHER | LOC: M.PC 08:11 | PROVIDERS: ATTEND Anesthesiology Pain Medicine | DX: M54.5 Low back pain (principal); G89.29 Other chronic pain; I10 Essential (primary) hypertension; K21.9 Gastro-esophageal reflux disease without esophagitis; F17.200 Nicotine dependence, unspecified, uncomplicated; M79.605 Pain in left leg; Z86.59 Personal history of other mental and behavioral disorders; Z88.8 Allergy status to other drugs, medicaments and biological substances; Z79.899 Other long term (current) drug therapy ==

== ENCOUNTER → 2020-12-01 | Outpatient (CLI) | payer OTHER | LOC: M.PC 08:20 | PROVIDERS: ATTEND Anesthesiology Pain Medicine | DX: M54.5 Low back pain (principal); G89.29 Other chronic pain; F40.01 Agoraphobia with panic disorder; Z86.59 Personal history of other mental and behavioral disorders; K21.9 Gastro-esophageal reflux disease without esophagitis; E11.9 Type 2 diabetes mellitus without complications; I10 Essential (primary) hypertension; F17.200 Nicotine dependence, unspecified, uncomplicated; Z88.8 Allergy status to other drugs, medicaments and biological substances; Z79.899 Other long term (current) drug therapy ==

== ENCOUNTER → 2020-12-29 | Outpatient (CLI) | payer OTHER | LOC: M.PC 08:05 | PROVIDERS: ATTEND Anesthesiology Pain Medicine | DX: M54.5 Low back pain (principal); M25.512 Pain in left shoulder; G89.29 Other chronic pain; K21.9 Gastro-esophageal reflux disease without esophagitis; E11.9 Type 2 diabetes mellitus without complications; I10 Essential (primary) hypertension; Z72.0 Tobacco use; F40.00 Agoraphobia, unspecified; M79.605 Pain in left leg ==

== ENCOUNTER → 2021-01-26 | Outpatient (CLI) | payer OTHER | LOC: M.PC 07:47 | PROVIDERS: ATTEND Anesthesiology Pain Medicine | DX: M54.5 Low back pain (principal); G89.29 Other chronic pain; M79.605 Pain in left leg; F40.01 Agoraphobia with panic disorder; F17.200 Nicotine dependence, unspecified, uncomplicated; I10 Essential (primary) hypertension; E11.9 Type 2 diabetes mellitus without complications; K21.9 Gastro-esophageal reflux disease without esophagitis; Z86.59 Personal history of other mental and behavioral disorders ==

== ENCOUNTER → 2021-02-23 | Outpatient (CLI) | payer OTHER | LOC: M.PC 08:02 | PROVIDERS: ATTEND Anesthesiology Pain Medicine | DX: M79.662 Pain in left lower leg (principal); M54.5 Low back pain; K21.9 Gastro-esophageal reflux disease without esophagitis; E11.9 Type 2 diabetes mellitus without complications; I10 Essential (primary) hypertension; F40.00 Agoraphobia, unspecified; F31.9 Bipolar disorder, unspecified; F17.210 Nicotine dependence, cigarettes, uncomplicated; Z79.899 Other long term (current) drug therapy; Z79.891 Long term (current) use of opiate analgesic; Z88.6 Allergy status to analgesic agent ==

== ENCOUNTER → 2021-03-23 | Outpatient (CLI) | payer OTHER | LOC: M.PC 08:00 | PROVIDERS: ATTEND Anesthesiology Pain Medicine | DX: M79.605 Pain in left leg (principal); E11.9 Type 2 diabetes mellitus without complications; I10 Essential (primary) hypertension; M06.9 Rheumatoid arthritis, unspecified; M19.90 Unspecified osteoarthritis, unspecified site; F40.00 Agoraphobia, unspecified; F31.9 Bipolar disorder, unspecified; F20.9 Schizophrenia, unspecified; F17.210 Nicotine dependence, cigarettes, uncomplicated; Z79.899 Other long term (current) drug therapy; Z79.891 Long term (current) use of opiate analgesic; Z88.6 Allergy status to analgesic agent ==

== ENCOUNTER → 2021-04-20 | Outpatient (CLI) | payer OTHER | LOC: M.PC 07:58 | PROVIDERS: ATTEND Anesthesiology Pain Medicine | DX: M79.605 Pain in left leg (principal); K21.9 Gastro-esophageal reflux disease without esophagitis; E11.9 Type 2 diabetes mellitus without complications; I10 Essential (primary) hypertension; F40.00 Agoraphobia, unspecified; F31.9 Bipolar disorder, unspecified; F20.9 Schizophrenia, unspecified; F17.200 Nicotine dependence, unspecified, uncomplicated; Z79.899 Other long term (current) drug therapy; Z79.891 Long term (current) use of opiate analgesic; Z88.6 Allergy status to analgesic agent ==

== ENCOUNTER → 2021-05-18 | Outpatient (CLI) | payer OTHER | LOC: M.PC 08:06 | PROVIDERS: ATTEND Anesthesiology Pain Medicine | DX: M25.512 Pain in left shoulder (principal); M54.5 Low back pain; G89.29 Other chronic pain; K21.9 Gastro-esophageal reflux disease without esophagitis; I10 Essential (primary) hypertension; Z79.899 Other long term (current) drug therapy; E11.9 Type 2 diabetes mellitus without complications ==

== ENCOUNTER → 2021-06-15 | Outpatient (CLI) | payer OTHER | LOC: M.PC 08:18 | PROVIDERS: ATTEND Anesthesiology Pain Medicine | DX: G89.29 Other chronic pain (principal); M54.5 Low back pain; M25.512 Pain in left shoulder; K21.9 Gastro-esophageal reflux disease without esophagitis; E11.9 Type 2 diabetes mellitus without complications; I10 Essential (primary) hypertension; Z87.891 Personal history of nicotine dependence; Z88.8 Allergy status to other drugs, medicaments and biological substances; Z79.899 Other long term (current) drug therapy ==

== ENCOUNTER → 2021-07-13 | Outpatient (CLI) | payer OTHER | LOC: M.PC 08:20 | PROVIDERS: ATTEND Anesthesiology Pain Medicine | DX: G89.29 Other chronic pain (principal); M54.50 Low back pain, unspecified; M25.512 Pain in left shoulder; K21.9 Gastro-esophageal reflux disease without esophagitis; E11.9 Type 2 diabetes mellitus without complications; I10 Essential (primary) hypertension; F17.200 Nicotine dependence, unspecified, uncomplicated; F40.00 Agoraphobia, unspecified; Z88.6 Allergy status to analgesic agent; Z79.899 Other long term (current) drug therapy ==

== ENCOUNTER → 2021-08-10 | Outpatient (CLI) | payer OTHER ==
[~2021-08-10] MED LIST changes: +HYDROCODONE-AP1 EA11 PO
== END ==
LOC: M.PC 09:05
PROVIDERS: ATTEND Anesthesiology Pain Medicine
DX: G89.29 Other chronic pain (principal); M54.50 Low back pain, unspecified; M25.512 Pain in left shoulder; K21.9 Gastro-esophageal reflux disease without esophagitis; I10 Essential (primary) hypertension; E11.9 Type 2 diabetes mellitus without complications; F40.00 Agoraphobia, unspecified; F17.210 Nicotine dependence, cigarettes, uncomplicated; Z88.6 Allergy status to analgesic agent; Z79.84 Long term (current) use of oral hypoglycemic drugs; Z79.899 Other long term (current) drug therapy

== ENCOUNTER → 2021-09-07 | Outpatient (CLI) | payer OTHER | LOC: M.PC 08:34 | PROVIDERS: ATTEND Anesthesiology Pain Medicine | DX: M25.531 Pain in right wrist (principal); M79.605 Pain in left leg; M25.539 Pain in unspecified wrist; M54.50 Low back pain, unspecified; G89.29 Other chronic pain; I10 Essential (primary) hypertension; E11.9 Type 2 diabetes mellitus without complications; K21.9 Gastro-esophageal reflux disease without esophagitis; Z72.0 Tobacco use; Z79.899 Other long term (current) drug therapy; Z88.6 Allergy status to analgesic agent ==

== ENCOUNTER → 2021-10-05 | Outpatient (CLI) | payer OTHER | LOC: M.PC 08:15 | PROVIDERS: ATTEND Anesthesiology Pain Medicine | DX: M54.50 Low back pain, unspecified (principal); M79.605 Pain in left leg; K21.9 Gastro-esophageal reflux disease without esophagitis; E11.9 Type 2 diabetes mellitus without complications; I10 Essential (primary) hypertension; F17.200 Nicotine dependence, unspecified, uncomplicated; Z88.6 Allergy status to analgesic agent; Z79.899 Other long term (current) drug therapy ==

== ENCOUNTER → 2021-11-02 | Outpatient (CLI) | payer OTHER ==
[~2021-11-02] MED LIST changes: +MIRTAZAPINE7.5 MG PO
== END ==
LOC: M.PC 07:42
PROVIDERS: ATTEND Anesthesiology Pain Medicine
DX: M54.50 Low back pain, unspecified (principal); K21.9 Gastro-esophageal reflux disease without esophagitis; E11.9 Type 2 diabetes mellitus without complications; I10 Essential (primary) hypertension; F17.200 Nicotine dependence, unspecified, uncomplicated; Z88.6 Allergy status to analgesic agent; Z79.899 Other long term (current) drug therapy